=== PATIENT | male | born 1940 | race Caucasian/White ===

== ENCOUNTER 2023-06-26 15:57 | Emergency (ER) | payer OTHER, SELFPAY ==
[2023-06-26 16:00] VITALS: BP 142/110
[2023-06-26 16:12] LABS: Glucose - Point of Care 145 mg/dl (70-99)
[2023-06-26 16:27] LABS: % Basophils 0.8 % (0-2); % Lymphocytes 25.1 % (20.5-51.1); % Neutrophils 61.1 % (42.2-75.2); Absolute Basophils 0.1 10^3/uL (0-0.2); Absolute Eosinophils 0.2 10^3/uL (0-0.7); Absolute Immature Granulocytes 0.1 10^3/uL (0-0.05); Absolute Lymphocytes 1.5 10^3/uL (1.2-3.4); Absolute Monocytes 0.5 10^3/uL (0.1-0.6); Absolute Neutrophils 3.7 10^3/uL (1.4-6.5); Hematocrit 41.6 % (39.0-52.0); Hemoglobin 14.6 g/dL (13.0-18.0); Mean Corp Hgb Conc. 35.1 g/dL (33.0-37.0); Mean Corpuscular Hgb 30.9 pg (27.0-31.0); Mean Corpuscular Volume 88.1 fL (80.0-94.0); Mean Platelet Volume 9.5 fL (7.4-10.4); Nucleated Red Blood Cells % 0 % (-); Platelet Count 181 10^3/uL (130-400); Red Blood Cell Count 4.72 10^6/uL (4.70-6.10); Red Cell Dist. Width 13.4 % (11.5-14.5)
[2023-06-26 16:44] LABS: ALT (SGPT) 40 U/L (0-50); AST (SGOT) 41 U/L (17-59); Albumin 4.1 g/dl (3.5-5.0); Alkaline Phosphatase 70 U/L (38-126); Blood Urea Nitrogen 25 mg/dl (9-20); Calcium 9.9 mg/dl (8.4-10.2); Carbon Dioxide 26 mmol/L (22-30); Chloride 105 mmol/L (98-107); Glucose 149 mg/dl (70-99); Potassium 4.5 mmol/L (3.5-5.1); Sodium 138 mmol/L (135-145); Total Bilirubin 0.7 mg/dl (0.2-1.3); Total Protein 7.2 g/dl (6.3-8.2); eGFR > 60.00
[2023-06-26 16:53] LABS: Troponin I < 0.012 ng/ml
--- NOTE | 2023-06-26 18:07 | ED.GENMED ---
History of Present Illness
General
Chief Complaint: Dizziness
Source: patient and spouse
Exam Limitations: none
Time Seen by Provider: 06/26/23 17:44
Nursing documentation reviewed up to this point in time: agreed with
Travel History
Have you had any contact with someone who has COVID-19?: No
Do you have any symptoms of coronavirus? Fever > 100 degrees, chills, cough, shortness of breath, sore throat, loss of taste or smell, muscle aches, or headache?: No
History of Present Illness
History of Present Illness:
83-year-old male presents emergency room complaining of a fall. He grabbed for his chair to sit down and got dizzy/lightheaded and fell to the ground. He scraped his right arm. He denies hitting his head. He denies any pain.
Past History
Past History
ED Past Medical History: Arrthythmia (bifascicular bundle branch block), CAD, GERD, HTN, Hypercholesterolemia, NIDDM, [place], Other (low back pain with right-sided sciatica, gout, presbycusis, nonalcoholic fatty liver disease), Other (ischemic
cardiomyopathy, vitamin B12 deficiency, abdominal aortic aneurysm without rupture, obesity, colonic polyposis, diverticulosis) and Other (rosacea, ANGELINE on CPAP)
ED Past Surgical History: Cardiac (stent placement) and Orthopedic (Right shoulder surgery, low back surgery)
Patient has exhibited threatening behavior?: No
PSI?: No
Social History
Tobacco: Former smoker
Alcohol: Occasional
Drug: None
Personal:
Living: with family
Employment: Retired
Family History
Family History: Other (reviewed and Noncontributory)
Review of Systems
Review of Systems
Allergies reviewed?: Yes
All Other Systems: Not applicable
Constitutional: Reports no symptoms
EENT: Reports no symptoms
Respiratory: Reports no symptoms
Cardiac: Reports no symptoms
ABD/GI: Reports no symptoms
: Reports no symptoms
Musculoskeletal: Reports no symptoms
Skin: Reports no symptoms
Neurological: Reports other (Lightheaded)
Endocrine: Reports no symptoms
Hematologic/Lymphatic: Reports no symptoms
Psychiatric: Reports no symptoms
Phy Exam
Physical Exam
Physical Exam:
Physical Exam
General: no apparent distress, not acutely ill
Neck: supple. no meningeal signs. normal posterior pharynx
Heart: s1/s2 regular rate and rhythm, no murmur. equal radial
pulses.
HEENT: Pupils equal round reactive to light, EOMI
Lungs: no acute respiratory distress. clear bilaterally
Abdomen: normal bowel sounds. not tender. no CVAT
Neuro: alert and oriented. no focal neurological deficits cranial nerves II through XII intact
Skin: no rash, skin tears right forearm
Psychiatric: well kept. interactive and cooperative
Extremities: no edema. no calf tenderness. negative homans. good distal pulses
Course
Orders/Labs/Results
Orders:
Orders
06/26/23 16:06
EKG [Electrocardiogram (*1)] Urgent
Reason for Study: Vertigo / Dizzy
EKG- Treatment ONCE
06/26/23 16:11
CBC/With Diff [Complete Blood Count/With Diff] Urgent
CMP [Comprehensive Metabolic Panel] Urgent
Troponin I Urgent
Abnormal Lab Results
06/26/23
16:11
Abs Immat Gran (auto) 0.1 H 10^3/uL
(0-0.05)
Immature Gran % 1.0 H %
(0-0.5)
BUN 25 H mg/dl
(9-20)
Glucose 149 H mg/dl
(70-99)
POC Glucose 145 H mg/dl
(70-99)
06/26/23 16:11
06/26/23 16:11
Vital Signs
Initial and Last Documented VS:
Initial Vital Signs
Temp Pulse Resp BP Pulse Ox
98.5 F 76 18 142/110 98
06/26/23 16:00 06/26/23 16:00 06/26/23 16:00 06/26/23 16:00 06/26/23 16:00
Last Documented Vital Signs
Temp Pulse Resp BP Pulse Ox
98.5 F 76 18 142/110 98
06/26/23 16:00 06/26/23 16:00 06/26/23 16:00 06/26/23 16:00 06/26/23 16:00
MDM/Problems Addressed
Differential Diagnosis Includes:
Dysrhythmia, skin tear
MDM/Problems Addressed:
83-year-old male with fall, no head strike, right skin tear. No signs of dysrhythmia. Vital signs stable. Patient be discharged to follow-up with primary care.
Chronic conditions affecting care: HTN and CAD
Acute Exacerbation and/or Progression of Chronic Illness: HTN and CAD
*Pulse Oximetry
Patient hypoxic: no
*EKG
Interpreted by ED Provider?: Yes
EKG Intrepretation Date: 06/26/23
EKG Intrepretation Time: 16:18
Interpretation: abnormal
Comparison EKG: no changes
Heart Rate: 74
Rate: normal
Rhythm: sinus
[place]: normal axis
Interval: normal interval and first degree heart block
QRS Pattern: normal QRS
*Plant Control Operator Interpretation
Rate: normal
Interpretation: normal
Heart Rate: 75
Rhythm: sinus
*Critical Care Note
Total Time (30-74mins, 75-104mins- exclusive of procedures): Not Applicable
Data Reviewed
Review of Other/Old Records Reveals: Records
Source: patient and family
Patient Management
Social determinants of health affecting care: Living situation and Strong social support
Escalation/DeEscalation of care consider admission/obs:
admit not indicated
ED Attending Note
-
Portions of this chart may have been created with voice recognition software.� Occasional wrong word or��sound alike� substitutions may have occurred due to the inherent limitations of voice recognition software.
Discharge Plan
Departure
Patient Disposition: Home (Routine Discharge)
Date of Disposition: 06/26/23
Time of Disposition: 18:14
Patient with high blood pressure during this ER visit?: Yes
Condition: Good
Discharge Problem:
Fall, Skin tear
Instructions: Preventing falls in adults, Wound Care ED
Prescriptions:
No Action
carvedilol 12.5 MG tablet
12.5 mg PO BID
nitroglycerin 0.4 MG tablet, sublingual
0.4 mg sublingual [id number] PRN (Reason: chest pain) Qty: 25 2RF
allopurinol 300 MG tablet
300 mg PO DAILY
cyanocobalamin (vitamin B-12) 1,000 MCG tablet
1,000 mcg PO DAILY
hydrochlorothiazide 25 MG tablet
25 mg PO DAILY
aspirin 81 MG tablet,chewable
81 mg PO QPM
metformin 500 MG tablet extended release 24 hr
1,000 mg PO QPM
fexofenadine 180 mg Tablet
180 mg PO DAILY
pravastatin 80 mg tablet
80 mg PO MOWEFR@2200
lisinopril 40 mg tablet
40 mg PO DAILY
clopidogrel 75 mg Tablet
75 mg PO DAILY Qty: 90 5RF
Activity Restrictions/Additional Instructions:
Follow up with primary care in 3-5 days.
Interventions
Interventions:
*Risk Screen - Suicide Last Done: 06/26/23 16:00
*General Assessment Last Done: 06/26/23 16:00
*ED COVID-19 Vaccine History Last Done: 06/26/23 16:00
== END 2023-06-26 18:38 | disposition home or self-care (01) ==
LOC: EMR 15:57
PROVIDERS: EMERGENCY PHYSICIAN Emergency Medicine; FAMILY PHYSICIAN Family Medicine
DX: S41.111A Laceration without foreign body of right upper arm, initial encounter (principal); W19.XXXA Unspecified fall, initial encounter; I10 Essential (primary) hypertension; I25.10 Atherosclerotic heart disease of native coronary artery without angina pectoris; Z87.891 Personal history of nicotine dependence
CPT/HCPCS: 99284; 80053; 82962; 84484; 85025; 93005

== ENCOUNTER 2023-12-06 08:37 | Emergency (ER) | payer OTHER, SELFPAY ==
[2023-12-06 08:53] VITALS: BP 152/74
[2023-12-06 09:26] VITALS: BMI 33.6
--- NOTE | 2023-12-06 09:38 | ED.GENMED ---
History of Present Illness
General
Chief Complaint: Musculo-Skeletal Complaint
Source: patient
Exam Limitations: none
Time Seen by Provider: 12/06/23 09:20
Nursing documentation reviewed up to this point in time: agreed with
History of Present Illness
History of Present Illness:
83-year-old male past medical history of CAD status post stent hypertension hyperlipidemia, diabetes presenting to the emergency department today with concerns of left-sided head discomfort. Initially had a fall hit his left hip had a contusion
[facility] He has had ongoing discomfort since some increased achiness today trouble ambulating today as well.
Past History
Past History
ED Past Medical History: Arrthythmia (bifascicular bundle branch block), CAD, GERD, HTN, Hypercholesterolemia, NIDDM, [place], Other (low back pain with right-sided sciatica, gout, presbycusis, nonalcoholic fatty liver disease), Other (ischemic
cardiomyopathy, vitamin B12 deficiency, abdominal aortic aneurysm without rupture, obesity, colonic polyposis, diverticulosis) and Other (rosacea, ANGELINE on CPAP)
ED Past Surgical History: Cardiac (stent placement) and Orthopedic (Right shoulder surgery, low back surgery)
Patient has exhibited threatening behavior?: No
PSI?: No
Social History
Tobacco: Former smoker
Alcohol: Occasional
Drug: None
Personal:
Living: with family
Employment: Retired
Family History
Family History: Other (reviewed and Noncontributory)
Review of Systems
Review of Systems
Allergies reviewed?: Yes
All Other Systems: ROS reviewed and negative except as documented in HPI and ROS
Phy Exam
Physical Exam
Physical Exam:
GENERAL: Alert , in no apparent distress
EYE: pupils equal and reactive
NECK: Supple, no significant adenopathy.
ENT: o/p clr, mmm.
CARDIAC: Regular rate and rhythm .
LUNGS: Clear breath sounds bilaterally, no acute respiratory distress, no wheezes/rales/rhonchi
ABDOMEN: Soft, without focal tenderness, no r/g, no cvat
NEUROLOGICAL: Alert and oriented, no focal neuro deficits
SKIN: Warm and dry, skin intact.
MUSCULOSKELETAL: Mildly reproducible discomfort to the left lateral hip. No redness or warmth good range of motion but increased discomfort with straight leg raise after 45 degrees. No abnormalities to the low back no edema, well perfused.
PSYCH: Normal and appropriate interaction.
Course
Orders/Labs/Results
Orders:
Orders
12/06/23 09:22
Hip, Left 2-3 Views [CR Hip - LT w/wo Pel 2-3 Vw*] Urgent
Comment:
Reason For Exam: left hip pain
Include a pelvis x-ray?: Yes
12/06/23 09:34
Lumbar Spine, 2 or 3 View [CR Lumbar Spine 2 Or 3 Views] Urgent
Comment:
Reason For Exam: low back pain
12/06/23 09:35
Dexamethasone [Decadron] 10 mg PO NOW STA
Ketorolac [Toradol] 15 mg IM NOW STA
12/06/23 09:42
Pt Eval And Treat Urgent
Activity Level: Ambulate
Vital Signs
Initial and Last Documented VS:
Initial Vital Signs
Temp Pulse Resp BP Pulse Ox
98.7 F 57 18 152/74 98
12/06/23 08:53 12/06/23 08:53 12/06/23 08:53 12/06/23 08:53 12/06/23 08:53
Last Documented Vital Signs
Temp Pulse Resp BP Pulse Ox
98.7 F 56 18 129/70 99
12/06/23 08:53 12/06/23 10:08 12/06/23 10:08 12/06/23 10:08 12/06/23 10:08
MDM/Problems Addressed
MDM/Problems Addressed:
83-year-old male presenting to the emergency department today with concerns of left-sided hip discomfort persisting over the past 9 days after a fall. He had x-rays at an urgent care 9 days ago that were normal. He was diagnosed with a contusion.
He has been taking Motrin and Tylenol at home without relief. Denies any fevers redness or warmth denies nausea vomiting change in bowel movements or urination. Here pain is mildly reproducible with some movements and vaguely reproducible with
palpation of the left lateral hip. No redness or warmth or any signs or symptoms consistent with infection. Patient was given Toradol with significant improvement of symptoms. Otherwise x-rays without emergent findings patient advised for close
outpatient follow-up with pain management return precautions given.
*Critical Care Note
Total Time (30-74mins, 75-104mins- exclusive of procedures): Not Applicable
ED Attending Note
-
Portions of this chart may have been created with voice recognition software.� Occasional wrong word or��sound alike� substitutions may have occurred due to the inherent limitations of voice recognition software.
Discharge Plan
Departure
Patient Disposition: Home (Routine Discharge)
Date of Disposition: 12/06/23
Time of Disposition: 11:33
Patient with high blood pressure during this ER visit?: No
Condition: Good
Covid-19: Not Applicable
Discharge Problem:
Acute hip pain
Instructions: Hip Pain ED
Prescriptions:
New
meloxicam 15 mg tablet
15 mg PO DAILY 5 Days Qty: 5 0RF
No Action
carvedilol 12.5 MG tablet
12.5 mg PO BID
nitroglycerin 0.4 MG tablet, sublingual
0.4 mg sublingual [id number] PRN (Reason: chest pain) Qty: 25 2RF
allopurinol 300 MG tablet
300 mg PO DAILY
cyanocobalamin (vitamin B-12) 1,000 MCG tablet
1,000 mcg PO DAILY
hydrochlorothiazide 25 MG tablet
25 mg PO DAILY
aspirin 81 MG tablet,chewable
81 mg PO QPM
metformin 500 MG tablet extended release 24 hr
1,000 mg PO QPM
fexofenadine 180 mg Tablet
180 mg PO DAILY
pravastatin 80 mg tablet
80 mg PO MOWEFR@2200
lisinopril 40 mg tablet
40 mg PO DAILY
clopidogrel 75 mg Tablet
75 mg PO DAILY Qty: 90 5RF
Referrals:
Victorino Whyte MD [Active] - Follow up in 5-7 days
Les Da Silva MD [Family Provider] -
Activity Restrictions/Additional Instructions:
You came to the emergency department today with concerns of left hip pain. You had x-rays without signs of emergent process. Please follow closely with the pain management doctor. You can take the prescribed medication help with symptoms. Return
to the emergency department for any worsening, new or concerning symptoms.
Interventions
Interventions:
*Risk Screen - Suicide Last Done: 12/06/23 08:53
*General Assessment Last Done: 12/06/23 08:53
*Neglect/Abuse Screening Last Done: 12/06/23 08:53
ED- Fall Risk Assessment Last Done: 12/06/23 09:30
*ED COVID-19 Vaccine History Last Done: 12/06/23 09:26
ED-Musculoskeletal Assessment Last Done: 12/06/23 09:26
Discharge Date and Time
Print Language: SYRIAC
[2023-12-06] MEDS: DECADRON 10 MG PO (09:55)
[2023-12-06] MEDS: TORADOL 15 MG IM (09:56)
[2023-12-06 10:08] VITALS: BP 129/70
[2023-12-06 10:56] VITALS: BP 141/69; PULSE 62; O2SAT 99
[2023-12-06 11:45] VITALS: BP 127/72
--- NOTE | 2023-12-06 11:54 | EDRN ---
Reviewed discharge instructions. Verbalized understanding. Taken to lobby in wheelchair.
== END 2023-12-06 11:45 | disposition home or self-care (01) ==
LOC: EMR 08:37
PROVIDERS: EMERGENCY PHYSICIAN Emergency Medicine; FAMILY PHYSICIAN Family Medicine
DX: M25.552 Pain in left hip (principal); I25.10 Atherosclerotic heart disease of native coronary artery without angina pectoris; I10 Essential (primary) hypertension; E78.00 Pure hypercholesterolemia, unspecified; E11.9 Type 2 diabetes mellitus without complications; Z87.891 Personal history of nicotine dependence
CPT/HCPCS: 99284; 96372; 72100; 73502

== ENCOUNTER → 2024-02-05 08:50 | Outpatient (REF) | payer OTHER, SELFPAY | LOC: HWRCS 08:50 | PROVIDERS: ATTENDING PHYSICIAN Internal Medicine Cardiovascular Disease; FAMILY PHYSICIAN Family Medicine | DX: Z95.5 Presence of coronary angioplasty implant and graft (principal); R53.83 Other fatigue | CPT/HCPCS: 93306 ==

== ENCOUNTER 2024-06-17 19:42 | Inpatient (IN) | payer OTHER, SELFPAY ==
[2024-06-17] VITALS (12 sets, daily range): BP systolic 97–150; BP diastolic 45–78; PULSE 29–133; BMI 35.9
--- NOTE | 2024-06-17 18:50 | HPS.HSE ---
Family Physician
-
Family Physician: Les Da Silva
Chief Complaint
-
lightheadedness
History of Present Illness
83-year-old with past medical history for AAA, GERD, cardiomyopathy, hypertension, obstructive sleep apnea, type 2 diabetes, MA, hyperlipidemia presented to us with lightheadedness. Patient slid off the chair as he felt the lightheadedness. Denied
headache or dizziness. Patient denied fever, chills, congestion, cough. Patient denied chest pain or short of breath. Patient denied abdominal pain, nausea, vomiting or diarrhea. Patient denied dysuria hematuria .
Patient was noted in third-degree heart block with heart rate ranging from 28 to 30s. Admitting for further management
Medical History
Past Medical History
Past Medical History: Reports Other
Additional Past Medical History:
GERD
AAA
Ischemic cardiomyopathy
Hypertension
Coronary artery disease
Obstructive sleep apnea
Type 2 diabetes
Poor spinal fusion
Bifascicular bundle branch block
hyperlipidemia
Myocardial infarction
Sciatica
Gout
Hypertension
Nonalcoholic fatty liver disease
Colon polyps
Diverticulosis
Past Surgical History: Reports Other
Additional Past Surgical History:
Cardiac stent
Social History
Tobacco: Former Smoker
Alcohol: None
Drug: None
Personal:
Living: With Family
Family History
Family History: Not pertinent
Allergies / Home Medications
Allergies reflects when Allergies were last updated in [employer].
Home Medications with original date entered in [employer]
Allergy/Medication List:
Allergies
Allergy/AdvReac Type Severity Reaction Status Date / Time
codeine [Codeine] Allergy hyper Verified 06/17/24 18:45
meloxicam [From Mobic] Allergy Shortness Verified 06/17/24 18:45
of
Breath/+wheezing
Sulfa (Sulfonamide Allergy severe pain Verified 06/17/24 18:45
Antibiotics)
sulfamethoxazole Allergy Unknown Verified 06/17/24 18:45
[From Bactrim]
trimethoprim [From Bactrim] Allergy Unknown Verified 06/17/24 18:45
Home Medications
carvedilol 12.5 mg tablet 12.5 mg PO BID Heart Failure 08/02/11
nitroglycerin 0.4 mg sublingual tablet 0.4 mg sublingual [id number] PRN chest pain #25 tabs 10/29/18
allopurinol 300 mg tablet 300 mg PO DAILY Gout 08/17/20
cyanocobalamin (vitamin B-12) 1,000 mcg tablet 1,000 mcg PO DAILY Supplement 08/17/20
hydrochlorothiazide 25 mg tablet 25 mg PO DAILY Blood pressure 04/12/21
aspirin 81 mg chewable tablet 81 mg PO QPM Blood clot prevention/tx 09/20/21
metformin 500 mg tablet,extended release 24 hr 1,000 mg PO QPM Diabetes 09/20/21
lisinopril 40 mg tablet 20 mg PO DAILY Blood pressure 08/16/22
Review of Systems
-
Constitutional: Reports No Symptoms
EENT: Reports No Symptoms
Respiratory: Reports No Symptoms
Cardiac: Reports No Symptoms
Abdomen/GI: Reports No Symptoms
: Reports No Symptoms
Musculoskeletal: Reports No Symptoms
Skin: Reports No Symptoms
Neurological: Reports No Symptoms
Endocrine: Reports No Symptoms
Hematologic/Lymphatic: Reports No Symptoms
Psych: Reports No Symptoms
Physical Exam
Vital Signs
Vital Signs
Temp Pulse Resp BP Pulse Ox
98.3 F 30 19 150/57 98
06/17/24 18:30 06/17/24 18:30 06/17/24 18:30 06/17/24 18:30 06/17/24 18:30
Physical Exam
General: Well Developed, Well Nourished and No Apparent Distress
HEENT: NormoCephalic, Moist mucous membranes and Atraumatic
Respiratory: Clear
Cardiac: Irregular Rhythm and Bradycardia; No Murmur or Rub
GI: Soft, Non Tender, Non Distended and Normal Bowel Sounds; No Organomegaly
Rectal: Deferred by Provider
Musculoskeletal: No Clubbing, No Cyanosis and No Edema
Skin: No Rash
Neuro: AO x 3 and Nonfocal/grossly intact
Psych: Calm
Data Reviewed
-
Lab Data: Labs Reviewed by me
Impression/Plan
-
# Near syncope secondary to third-degree heart block/Willy
-HR in 28-32
-Hold Coreg
-Cardiology consulted
-Keep patient n.p.o. for pacemaker tomorrow
-getting temporary pacer tonight
-dopamine continued
-as per cards, placed successful temp transvenous pacer, at present HR in 80s
# Coronary artery disease
-Cardiac stent
-Aspirin continued
# Type 2 diabetes
-Hold metformin
- sliding scale
# Essential hypertension
-Blood pressure stable
-HCTZ and lisinopril continue with hold parameters
# Gout
allopurinol continued
# Hyperlipidemia
-on Repatha as outpatient
# DVT prophylaxis
-SCDs
# CODE STATUS
- full code
-
-
[2024-06-17 19:04] LABS: Hematocrit 38.7 % (39.0-52.0); Hemoglobin 13.4 g/dL (13.0-18.0); Mean Corp Hgb Conc. 34.6 g/dL (33.0-37.0); Mean Corpuscular Hgb 30.3 pg (27.0-31.0); Mean Corpuscular Volume 87.6 fL (80.0-94.0); Mean Platelet Volume 9.3 fL (7.4-10.4); Platelet Count 175 10^3/uL (130-400); Red Blood Cell Count 4.42 10^6/uL (4.70-6.10); Red Cell Dist. Width 13.2 % (11.5-14.5)
[2024-06-17] MEDS: DOPamine 400 MG 250 IV (19:14)
[2024-06-17 19:20] LABS: ALT (SGPT) 32 U/L (0-50); AST (SGOT) 27 U/L (17-59); Albumin 4.3 g/dl (3.5-5.0); Alkaline Phosphatase 73 U/L (38-126); Blood Urea Nitrogen 33 mg/dl (9-20); Calcium 9.7 mg/dl (8.4-10.2); Carbon Dioxide 27 mmol/L (22-30); Chloride 101 mmol/L (98-107); Estimated Creatinine Clearance 73 ml/min; Glucose 158 mg/dl (70-99); Magnesium 2.1 mg/dl (1.6-2.3); Potassium 4.3 mmol/L (3.5-5.1); Sodium 137 mmol/L (135-145); Total Bilirubin 0.6 mg/dl (0.2-1.3); Total Protein 6.4 g/dl (6.3-8.2); eGFR > 60.00
--- NOTE | 2024-06-17 19:27 | W.PN.UPDATE ---
Update Note
Progress Note Update
This note serves as an addendum to the H&P by dolphin trainer BOBBY Iram MCCLURE
HPI
83M [facility] former smoker HX 6 cardiac stented CAD S/P ROEL (2019), bifascicular block, HTN, AAA (distal infrarenal 2.4cm), NIDDM, GERD, ANGELINE (on CPAP) seen at ER:
- [facility]
- reports he slide out of chiar due to dizziness after taking PM Meds Carvedilol and allopurinol
- Found to bradycardic @ 30s 1 mg IV atropine was given at 1820H then HR returns to 30s
- BG 205
PHX; as above
Reviewed VS: HR 30
PE
Gen:
HEENT:
Neck:
Lungs:
Cor:
Abdomen:
ANALYTICS SPECIALIST:
MS:
Psych:
Data
nl CBC
Pending CMP
EKG
MARKED SINUS BRADYCARDIA WITH A-V DISSOCIATION AND IDIOVENTRICULAR RHYTHM
LEFT AXIS DEVIATION
NON-SPECIFIC INTRA-VENTRICULAR CONDUCTION BLOCK
MINIMAL VOLTAGE CRITERIA FOR LVH, MAY BE NORMAL VARIANT ( Prieto product )
INFERIOR INFARCT , AGE UNDETERMINED
CANNOT RULE OUT ANTERIOR INFARCT , AGE UNDETERMINED
T WAVE ABNORMALITY, CONSIDER LATERAL ISCHEMIA
ABNORMAL ECG
WHEN COMPARED WITH ECG OF 26-JUN-2023 16:18,
IDIOVENTRICULAR RHYTHM HAS REPLACED SINUS RHYTHM
VENT. RATE HAS DECREASED BY 43 BPM
ECHO 02/05/24
Technically limited study. Recommend contrast for future studies.
Normal biventricular size and systolic function without regional wall motion abnormality.
Estimated LVEF 50-55%.
Aortic sclerosis without stenosis.
Dilated aortic root. Sinuses of Valsalva 4.2cm, ST junction is 3.6cm, Ascending Ao is 4.0cm.
10/28/18 Cardiac Catheterization:
EF 59%. Left main: Normal. LAD: 50-60% mid LAD stenosis similar in appearance to prior study (07/24/2016). Circumflex: 90% mid circumflex stenosis spanning the take off of the small OM2. This was stented with a ROEL.
ASSESSMENT & PLAN
Symptomatic severe bradycardia - AV dissociation
Lightheadedness episode almost near syncope
Normotensive
No CP
- ER attd d/w EP Automobile Glass Technician
- check TSH
- Hold Carvedilol
- on Dopamine gtt initiated at ER but HR is in 30s
- For temporary pace wire tonight
- NPO for PPM in AM
- CBC card consult
CAD S/P ROEL 2019 HX
- As above: New LCX lesion underwent PCI Tue but with slow flow after procedure, treated w IV adenosine
- c/w ASA and BB
Benign HTN - stable
ANGELINE - on CPAP
- CPAP use
NIDDM - Hyperglycemia
- add ISS low
- hold Metformin outpatient, hold for 48 hours with cardiac catheterization
DVT Px: SCD
Full code
IVU
[2024-06-17 19:45] LABS: Troponin I < 0.012 ng/ml
--- NOTE | 2024-06-17 19:54 | ITS.CL.PN ---
Farm Crew Member - Procedure Note
Procedure
Procedure Note:
TRANSVENOUS PACEMAKER REPORT
�
Date of Procedure: June 17, 2024
�
Referring: [place] emergency department
�
PROCEDURES:
1. Ultrasound-guided access.
2. Temporary transvenous pacemaker via right internal jugular venous access.
�
INDICATION: High-grade AV block
�
ACCESS: Right IJ vein
�
PROCEDURE DETAIL: Ultrasound guidance was utilized to obtain right internal jugular venous access with 8 Vietnamese sheath inserted and secured in place. Through this sheath a balloon tipped temporary transvenous pacemaker was successfully advanced
under fluoroscopy guidance into the right ventricle and thresholds were checked which was less than 1mA. Temporary transvenous pacemaker was set at a backup heart rate of 60 bpm, 20 mA
�
FLUORO: 1.2��min / RADIATION: 41.52
mGy
�
CONCLUSIONS
1. Successful placement of a temporary transvenous pacemaker via right internal jugular venous access with sheath sutured and secured in place along with a temporary venous pacemaker.
�
RECOMMENDATIONS
1. Bedrest overnight. Chest x-ray to rule out pneumothorax.
2. N.p.o. after midnight for likely permanent pacemaker tomorrow morning.
�
Porsha Fernández MD, [facility], [facility]
Copy to: René Capellan
�
�
�
�
�
�
--- NOTE | 2024-06-17 21:00 | PTCARENOTE ---
Received pt from shellfish processing laborer. pt is s/p temp pacemaker placement for 3rd degree heart block. pt is AAox4, VSS. VSS. pt is resting comfortably in bed. heart sounds audible, radial and DP pulses palpable, temp right IJ cordis, pacer set to VVI 60/20/.8.
lungs clear, cpap at night. +BS x 4 quadrants, abdomen soft non tender. pt voiding clear yellow urine. admission questions completed.
[2024-06-17 21:34] LABS: Glucose - Point of Care 186 mg/dl (70-99)
--- NOTE | 2024-06-17 23:48 | PTCARENOTE ---
Pt assessment unchanged. pt resting comfortably. RT place CPAP on pt. will continue to monitor.
[2024-06-18] VITALS (39 sets, daily range): BP systolic 87–136; BP diastolic 34–101; BMI 34.3
--- NOTE | 2024-06-18 02:35 | DOWNTIME ---
There was a Invisible Client Weigher And Grader Downtime on 06/18/2024 from 0100 to 06/18/2023 at 0235 . Downtime documentation of patient's care, including medication administrations, has been reconciled in the electronic record per guidelines. Refer to the
patient's paper chart under the miscellaneous tab to see printed paper medication records and downtime forms.
--- NOTE | 2024-06-18 04:00 | PTCARENOTE ---
pt assessment unchanged. labs drawn and sent. pt waiting for PPM today. call howard within reach.
--- NOTE | 2024-06-18 07:20 | W.PN.HOSP.TC ---
Addendum entered and electronically signed by Abraham Brown MD 06/18/24 21:37:
Attending Addendum-
I saw and evaluated the patient. I reviewed the resident�s note and agree with findings and plan as documented in the resident�s note. Sub: Seen post PPM. Appears confused and out of it. grabbing nursing staff. No complaints. Full 12 point ROS
attempted but limited due to MS Exam: Vitals reviewed in chart GEN-NAD, Chest- Lt upper chest bandaged, LUE in sling heart RRR lungs clear abd soft LE no edema LUE in sling pulses intact Neuro AAO x1
Plan:
#Third-degree heart block
-temporary pacer placed overnight
-06/18-Uncomplicated Medtronic pacemaker implant. The pacing system is MRI conditional. post op ancef
-wean dopamine to off then pull cordis
-PPM activity precautions with wound care
# CAD
-h/o Cardiac stent
-Aspirin continued
-reinitiate coreg in am
# Type 2 diabetes
- Hold metformin restart on DC
- sliding scale
# Essential hypertension
-Blood pressure stable
-HCTZ and lisinopril continue with hold parameters
# Gout
allopurinol continued
# Hyperlipidemia
-on Repatha as outpatient
# DVT prophylaxis
-SCDs
# CODE STATUS
- full code
Time spent coordinating care, review of plan of care with resident, personally reviewed records in EMR, med rec, consults, notes, labs, radiology, d/w nursing cards � 54 mins
Original Note:
Today's Communication/Plan
-
PPM today
N.p.o.
Monitor on telemetry
Assessment / Plan
Assessment / Plan
83-year-old male with PMH of AAA, GERD, CM, HTN, type II DM, CT, hyperlipidemia who presented to [facility] on 06/17/2024 with lightheadedness, slid off his chair denies head trauma. Denies headache/dizziness, denies fever, chills, chest
pain, SOB, N/V/D, abdominal pain or urinary symptoms.
Assessment/plan:
#Near syncope 2/2 third-degree heart AV block vs sick sinus syndrome
-Heart rate 28-32 on presentation.
-S/p catheterization 06/17.
-N.p.o.
-Maintained on temporary transvenous pacer overnight.
-Dual chamber permanent pacemaker placement today.
-Wean dopamine, keep MAP >65, SBP >90.
-Hold Coreg
-Cardiology following.
History of coronary artery disease
-S/p cardiac stents
-Continue aspirin.
#Type II DM
-Hold metformin.
-Low SSI, Accu-Cheks.
#Essential hypertension
-Stable.
-Hold lisinopril and HCTZ for procedures and restart afterwards.
#Chronic gout
-Continue allopurinol.
#Dyslipidemia.
-Continue outpatient Repatha.
#History of ANGELINE
DVT PPx: SCDs
CODE STATUS: Full code
Anticipated Discharge: 24 - 48 hours
Subjective/Interval History
-
Date of Service: June 18, 2024
I have seen and examined the patient. Reports no acute complaints today. Eager to get his permanent pacemaker. No acute events reported overnight. Hemodynamically stable.
Objective Data
-
Labs:
Laboratory Results
06/17/24
18:53
Sodium 137
Potassium 4.3
Chloride 101
Carbon Dioxide 27
BUN 33 H
Creatinine 1.0
Glucose 158 H
Calcium 9.7
Total Bilirubin 0.6
AST 27
ALT 32
Alkaline Phosphatase 73
Vital Signs:
Vital Signs
Temp Pulse Resp BP Pulse Ox
98.3 F 66 15 125/101 98
02/18/25 23:50 06/18/24 06:45 06/18/24 06:45 06/18/24 06:00 06/18/24 04:00
I&O
06/17/24 06/18/24 06/19/24
06:59 06:59 06:59
Output Total 300 / 300
Balance -300 / -300
Review of Systems
-
History Source: Patient
All other systems: Not reviewed unless documented
EENT: Reports No Symptoms Reported
Respiratory: Reports No Symptoms; Denies Cough or Trouble Breathing
Cardiac: Denies Chest Pain or Palpitations
Abdomen/GI: Reports No Symptoms; Denies Abdominal Pain, Nausea, Vomiting, Diarrhea or Bloody Stools
Skin: Reports No Symptoms
Neuro: Reports No Symptoms
Physical Exam
-
General: Well Developed, No Apparent Distress and Comfortable
HEENT: Normocephalic and Atraumatic
Respiratory: Clear to Auscultation
Cardiac: Regular Rhythm and S1/S2; Negative Murmur or Rub
GI: Soft, Nontender, Nondistended and Normal Bowel Sounds
Musculoskeletal: No Clubbing and No Edema
Skin: Warm and Dry; Negative Rash
Neuro: Awake and AO x 3
Psych: Calm
Data Reviewed
-
Diagnostic Radiology: Image personally visualized and interpreted, Report Reviewed by me and Discussed with Physician
Labs: Labs Reviewed by me and Discussed with Physician
Old Records: Reviewed
[2024-06-18] MEDS: ZYLOPRIM PO (08:00)
--- NOTE | 2024-06-18 08:30 | PTCARENOTE ---
pt received from previous RN, oriented, in bed. SR w/ 1st degree AVB/BBB on the monitor, HR 60-70s. Dopamine gtt running as ordered. SBP 100-120s. palpable pulses. pt on RA, 95-98% POX. lungs clear. pt abdomen round s/n, denies n/v. NPO. RIJ cordis
w/ TV pacer in place, VVI 60/20. PIV x2. bedrest. EKG performed. see worklist for VS, I&O, and assessment.
[2024-06-18] MEDS: ORETIC PO (08:49)
[2024-06-18] MEDS: ZESTRIL PO (08:50)
[2024-06-18 09:13] LABS: Glucose - Point of Care 144 mg/dl (70-99)
[2024-06-18] MEDS: NOVOLOG FLEXPEN-LOW RESISTANCE SC ×2 (09:14→14:45)
--- NOTE | 2024-06-18 09:20 | CM ---
Reviewed chart. Met with Mr. Jacobs to review discharge plans. He states prior to admission he resides with his spouse in a one story home with five steps to the porch and two steps to enter the home. He states prior to admission he was independent
with ambulation in the home but uses a quad cane in the community. He states he has a single point cane, quad cane and CPAP Machine at home. He states he has never needed VNA Services. He states he has a prescription plan and uses [facility]. Medical work-up in progress. The discharge plan is to return home with his spouse when medically stable.
[2024-06-18 09:45] LABS: Glycohemoglobin (HgbA1c) 7.2 % (4.0-5.6)
--- NOTE | 2024-06-18 10:07 | W.PN.CD ---
Today's Communication / Plan
-
-
EP Consult dictated
Plan:
- Dual chamber permanent pacemaker placement today
Impression / Plan
-
Syncope/near syncope from complete heart block
Paroxysmal complete heart block, likely infrahisian level of block
Pre-existing bifascicular heart block, RBBB/LAFB
CAD
Normal LVEF 50-55% in 01/2024
Mixed hyperlipidemia
HTN
ANGELINE
DM
GERD
BMI 34
Subjective: Feels ok now
Physical Exam
Vital Signs/Labs
Vital Signs
Temp Pulse Resp BP Pulse Ox
98.3 F 66 19 120/91 98
06/17/24 23:50 06/18/24 09:45 06/18/24 09:45 06/18/24 09:00 06/18/24 09:15
06/17/24 06/18/24 06/19/24
06:59 06:59 06:59
Actual Weight 108.5 kg
06/17/24 18:53
06/17/24 18:53
Magnesium 2.1 mg/dl (1.6-2.3) 06/17/24 18:53
LAB Results
06/17/24
19:17
Troponin I < 0.012
Data Reviewed
-
Date of Service: June 18, 2024
--- NOTE | 2024-06-18 10:23 | PTCARENOTE ---
pt cleaned w/ CHG wipes. report given to CCL RN, pt transported to CCL by CCL RN.
[2024-06-18 13:59] LABS: Glucose - Point of Care 141 mg/dl (70-99)
--- NOTE | 2024-06-18 14:15 | PTCARENOTE ---
pt report received from [facility], pt arrived to CVICU @~1330, pulling at clothes, disoriented to place and time. Dr. Brown aware of confusion. 100% Vpaced on the monitor, HR 60-80s. SBP 80-100s, Dopamine gtt running as ordered. pt on RA, sats in 80s,
placed on 3LNC w/ improvement. pt abdomen round, s/n, denies n/v. condom cath placed on patient, voiding. LCW aquacel in place, LUE sling in place. RIJ cordis maintained w/ KVO. EKG performed. at bedside. see worklist for VS, I&O, and
assessment.
--- NOTE | 2024-06-18 15:10 | PTCARENOTE ---
VSS. confusion clearing, oriented x3. follows commands. pt knows he had a PPM placed. CXR completed. lunch ordered.
--- NOTE | 2024-06-18 15:47 | ITS.CL.PACE ---
[employer] - Pacemaker Implant
Pacemaker Implant
Procedure Report:
Date of Procedure: June 18, 2024.
Procedure: Pacemaker Implantation. Left upper extremity venogram.
Indication: The pacemaker is for the treatment of nonreversible symptomatic bradycardia due to third degree atrioventricular block.
Performing physician: Adonis Collazo MD, [facility].
Implants:
Pulse Generator: Medtronic; Model# [id number]; Serial# [id number].
RA Lead: Medtronic; Model# 5076-52cm; Serial# [id number].
RV Lead: Medtronic; Model# 3830-69cm; Serial# [id number].
Technique: A time out was performed. A 10 mL upper extremity venogram demonstrated patent left axillary, cephalic, and subclavian veins. The procedure site was identified. The patient was anesthetized by the anesthesia service. Preoperative
cefazolin was administered. The patient was prepped and draped in the usual fashion. Local anesthetic was applied to the left prepectoral subcutaneous tissue. A 3 inch incision was made along the left deltopectoral groove. Dissection was carried to
the fascia. The left cephalic vein was easily isolated and proximal and distal control with 2-0 Vicryl suture. Using a micropuncture needle to access the cephalic vein under direct visualization a wire was advanced into the central circulation. A 7
Fr introducer was placed to allow two 0.35 J wires to be advanced. The leads were introduced with hemostatic peel away introducer sheaths. The RV lead was placed using utilizing the [employer] His delivery catheter ([id number]) that was advanced to the
left bundle area as confirmed by fluoroscopy in the HUNGARIAN and HEATH projections. The lead tip was advanced. PVC morphology was reviewed. When a satisfactory location was identified (W pattern observed) the lead was screwed into position with serial
turns. Septal engagement was confirmed with gentle torque applied to the guide sheath. After each series of turns (2-3) unipolar sensed morphology and impedance, and paced morphology of V1 was analyzed. The lead was further advanced until
satisfactory morphology and electrical characteristics were confirmed. There were 2 locations that had outstanding left bundle area pacing characteristics with a short left ventricular activation time and QR pattern in V1. However in both of those
locations the capture threshold bridger from 1 V 2-3 turns earlier to 2 V at the ideal location. I had to settle for nonselective left bundle pacing/deep intramyocardial septum to ensure a stable and acceptable capture threshold. The RV lead was
placed in the fifth location evaluated. The long guiding sheath was cut and removed from the RV without change in lead position, impedance, sensing, or capture. The ventricular lead was secured to the pectoralis muscle and fascia with two 0-silk
sutures. The atrial lead was placed in the right atrial appendage. 8 volt pacing from each lead did not capture the diaphragm. The atrial leads was secured to the pectoralis muscle and fascia. A subcutaneous pocket was created with Bovie cautery.
Hemostasis was excellent. The leads were appropriately attached to the device. The pocket was irrigated with antibiotic solution. The device and leads were placed in the pocket. The incision was closed in three layers with absorbable suture.
Steri-strips and a silver impregnated dressing were placed. Estimated blood loss was less than 10 ml. There were no complications. Fluoroscopy time 12.9 minutes and DAP 27.8 GyCM2. The device was then interrogated after skin closure.
Lead Analysis:
RA lead: P: 2.6 mV; Threshold: 1 V @ 0.4 ms; Impedance: 456 ohms.
RV lead (bipolar): R: 5.1 mV; Threshold: 0.5 V @ 0.4 ms; Impedance: 779 ohms.
RV lead (unipolar): R: 4.9 mV; Threshold: 0.5 V @ 0.4 ms; Impedance: 589 ohms.
Paced QRS characteristics: V1 has Qr morphology and measures 130 ms in duration, LVAT (stim to peak V5/V6) is 90 ms, and R peak V1 to R peak V5/6 is 44 ms.
Final Programming: DDDR 60-130 bpm.
Conclusion: Uncomplicated Medtronic pacemaker implant. The pacing system is MRI conditional.
Recommendation: Routine post pacemaker care.
cc: Steve Belcher MD and Les Da Silva MD.
[2024-06-18 16:46] LABS: Glucose - Point of Care 176 mg/dl (70-99)
[2024-06-18] MEDS: NOVOLOG FLEXPEN-LOW RESISTANCE 1 UNITS SC (17:10)
[2024-06-18] MEDS: ANCEF 5 IV (17:10)
[2024-06-18] MEDS: LOW STRENGTH ASPIRIN 81 MG PO (17:10)
--- NOTE | 2024-06-18 18:35 | PTCARENOTE ---
Dopamine gtt titrated off, RIJ cordis dc'd as ordered. attempted to get pt OOB to chair, unsteady on feet. pt placed back to bed. SBP 110s. linens and gown changed. pt incontinent x1, linens and gown changed again. condom cath in place.
--- NOTE | 2024-06-18 20:00 | PTCARENOTE ---
Assumed care of the patient at 1900. Patient in bed, AOx3 but confused, forgetful making inappropriate comments regarding where he would be sleeping, etc, reorientation provided. Ventricular paced on telemetry, pulses palpable, new permanent pacer
in place, no edema. Lungs clear on RA. Abdomen SNT, obese. Condom catheter in place, urine clear yellow, concentrated; patient incontinent. Skin intact, LCW Aquacel in place for pacer, L sling in place. See nursing worklist for interventions. Call
howard within reach, patient updated on POC, in agreement, assessment of needs ongoing.
[2024-06-18 22:15] LABS: Glucose - Point of Care 123 mg/dl (70-99)
[2024-06-19] VITALS (18 sets, daily range): BP systolic 105–151; BP diastolic 64–102; PULSE 84; O2SAT 98; BMI 34.3
--- NOTE | 2024-06-19 | PTCARENOTE ---
Patient removed condom cath, incontinent. Condom cath replaced, patient reoriented, VSS.
[2024-06-19] MEDS: BENADRYL 25 MG IV (02:41)
[2024-06-19] MEDS: ANCEF 5 IV (02:41)
[2024-06-19 03:39] LABS: Hematocrit 38.3 % (39.0-52.0); Hemoglobin 12.9 g/dL (13.0-18.0); Mean Corp Hgb Conc. 33.7 g/dL (33.0-37.0); Mean Corpuscular Hgb 30.1 pg (27.0-31.0); Mean Corpuscular Volume 89.3 fL (80.0-94.0); Mean Platelet Volume 9.6 fL (7.4-10.4); Platelet Count 150 10^3/uL (130-400); Red Blood Cell Count 4.29 10^6/uL (4.70-6.10); Red Cell Dist. Width 13.2 % (11.5-14.5); White Blood Cell Count 8.3 10^3/uL (4.8-10.8)
[2024-06-19 03:45] LABS: Blood Urea Nitrogen 27 mg/dl (9-20); Calcium 8.9 mg/dl (8.4-10.2); Carbon Dioxide 26 mmol/L (22-30); Chloride 103 mmol/L (98-107); Estimated Creatinine Clearance 78 ml/min; Glucose 126 mg/dl (70-99); Potassium 4.2 mmol/L (3.5-5.1); Sodium 137 mmol/L (135-145); eGFR > 60.00
--- NOTE | 2024-06-19 04:05 | PTCARENOTE ---
Patient increasingly agitated as the night progressed, CVPA aware, given IV Benadryl, labs drawn and sent, made comfortable in bed. Around 0350, patient insisted on getting OOB. Reorientation attempted by RNs; patient verbally abusive, attempting to
kick/hit, answering orientation questions correctly but stating 'you are in my house,' and requesting his . Bed alarm on, call howard within reach.
[2024-06-19 04:18] LABS: Glucose - Point of Care 129 mg/dl (70-99)
--- NOTE | 2024-06-19 07:06 | W.PN.HOSP.TC ---
Addendum entered and electronically signed by Abraham Brown MD 06/19/24 22:41:
Attending Addendum-
I saw and evaluated the patient. I reviewed the resident�s note and agree with findings and plan as documented in the resident�s note. Sub: called by PT re apparent visual filed cuts. Patient denies neuro sxs. Is embarrased of how he acted post PPM
placement. 'Im not like that' Seen with present. Feels weak. Denies vision changes Very pleasant Full 12 point ROS reviewed and negative except as documented Exam: Vitals reviewed in chart GEN-NAD, Left neck incision bandaged Chest- Lt upper
chest aquacell in place, LUE in sling heart RRR lungs clear abd soft LE no edema LUE in sling pulses intact Neuro AAO x3 MS 5/5 sensation intact CN 2 - 12 GI no visual field deficits
Plan:
#Third-degree heart block
-temporary TV pacer placed on admission- removed
-06/18-Uncomplicated Medtronic pacemaker implant. The pacing system is MRI conditional
-weaned dopamine to off cordis pulled
-PPM activity precautions with wound care
# CAD
-h/o Cardiac stent
-Aspirin continued
-reinitiate coreg
# Apparent Visual Filed Deficit
- appreciate neuro c/s
- head ct-Stable chronic findings. No acute intracranial abnormality noted. No acute intracranial hemorrhage
- check carotid U/S
- cont asa
- OP Ophtho eval and MRI 6-8 weeks
- PT OT
# Type 2 diabetes
- Hold metformin restart on DC
- sliding scale
- [id number]
# Essential hypertension
-Blood pressure stable
-HCTZ and lisinopril continue with hold parameters
-restart coreg
# Gout
allopurinol continued
# Hyperlipidemia
-on Repatha as outpatient
# CVA- seen on head ct
- chronic
- cont asa repatha
# DVT prophylaxis
-SCDs
# CODE STATUS
- full code-> DNR d/w
Dispo DC to SNF in am
ACP
Patient consented to discuss, was with /POA, time spent explanation of advance directives, changes in health status, patient�s health care wishes if the patient becomes unable to make health decisions, goals of care, code status, and prognosis
'he doesnt want that his advanced directive states otherwise'- 16 minutes
Time spent coordinating care, review of plan of care with resident, personally reviewed previous records in EMR, med rec, labs, radiology, d/w nursing, family total time documented is exclusive of any additional time listed that was spent in advance
care planning discussion -�56 minutes
Original Note:
Today's Communication/Plan
-
Monitor on telemetry
Wound care
Neuro consult.
Fall precautions.
Continue lisinopril and Coreg
Constant redirection, avoid antipsychotics
Discharge planning
Assessment / Plan
Assessment / Plan
83-year-old male with PMH of AAA, GERD, CM, HTN, type II DM, MA, hyperlipidemia who presented to [facility] on 06/17/2024 with lightheadedness, slid off his chair denies head trauma. Denies headache/dizziness, denies fever, chills, chest
pain, SOB, N/V/D, abdominal pain or urinary symptoms.
Assessment/plan:
#Near syncope 2/2 third-degree heart AV block
-S/p uncomplicated Medtronic MRI compatible dual chamber pacemaker implant 06/18.
-Postop Ancef given.
-Dopamine weaned off, Cordis pulled successfully.
-Wound care.
-Pacemaker restrictions.
-Discontinue Coreg.
-Outpatient follow-up with cardiology.
-Cardiology appreciated.
#Transient encephalopathy
-Most likely anesthesia induced vs sundowning.
-Constant reorientation.
-Benadryl as needed.
-Avoid antipsychotics.
-Strict glycemic control.
#Right field deficit.
#Ambulatory dysfunction
-Intermittent decreased right peripheral vision.
-Not sure if this is acute vs chronic.
-Non contrast CT head per neuro.
-Brain MRI in 6 weeks.
-Neuro input appreciated.
-Fall precautions.
-Outpt ophthalmology eval.
-No driving.
-PT recs SNF, Pt not agreeable.
History of coronary artery disease
-S/p 6 cardiac stents
-Continue aspirin.
#Type II DM
-Continue metformin.
-Low SSI, Accu-Cheks.
#Essential hypertension
-Stable.
-Continue lisinopril and HCTZ for procedures and restart afterwards.
#Chronic gout
-Continue allopurinol.
#Mixed Dyslipidemia.
-Continue outpatient Repatha.
#History of ANGELINE
DVT PPx: SCDs
CODE STATUS: Full code
Dispo- PT recs SNF for ambulatory disfunction if pt and agrees.
Anticipated Discharge: Today
Subjective/Interval History
-
Date of Service: June 19, 2024
Overnight patient was increasingly agitated, Benadryl administered. This morning, patient looks better. Communicating appropriately, intermittently confused. Stated that today [birth year] his birthday and he would like to go home today. Denies chest
pain, shortness of breath, abdominal pain, fever or chills. Denies palpitations.
Objective Data
-
Labs:
Laboratory Results
06/19/24
02:57
WBC 8.3
Hgb 12.9 L
Hct 38.3 L
Plt Count 150
Sodium 137
Potassium 4.2
Chloride 103
Carbon Dioxide 26
BUN 27 H
Creatinine 0.9
Glucose 126 H
Calcium 8.9
Vital Signs:
Vital Signs
Temp Pulse Resp BP Pulse Ox
98.4 F 73 17 127/69 94
06/19/24 04:00 06/19/24 02:15 06/19/24 02:15 06/19/24 02:06 06/19/24 02:15
I&O
06/18/24 06/19/24 06/20/24
06:59 06:59 06:59
Intake Total 711.8 / 711.8
Output Total 300 / 300 1450 / 1450
Balance -300 / -300 -738.2 / -738.2
Review of Systems
-
History Source: Patient
All other systems: Not reviewed unless documented
EENT: Reports No Symptoms Reported
Respiratory: Reports No Symptoms; Denies Cough or Trouble Breathing
Cardiac: Denies Chest Pain or Palpitations
Abdomen/GI: Reports No Symptoms; Denies Abdominal Pain, Nausea, Vomiting, Diarrhea or Bloody Stools
Musculoskeletal: Reports No Symptoms
Skin: Reports No Symptoms
Neuro: Reports No Symptoms
Endocrine: Reports No Symptoms
Physical Exam
-
General: Well Developed, No Apparent Distress and Comfortable
HEENT: Normocephalic and Atraumatic
Respiratory: Clear to Auscultation
Cardiac: Regular Rhythm and S1/S2; Negative Murmur or Rub
GI: Soft, Nontender, Nondistended and Normal Bowel Sounds
Musculoskeletal: No Clubbing and No Edema
Skin: Warm and Dry; Negative Rash
Neuro: Awake and AO x 3
Psych: Calm
Data Reviewed
-
Diagnostic Radiology: Image personally visualized and interpreted, Report Reviewed by me and Discussed with Physician
Labs: Labs Reviewed by me and Discussed with Physician
Old Records: Reviewed
--- NOTE | 2024-06-19 07:57 | PTCARENOTE ---
assumed care of pt from previous shift RN, pt is oriented, confused and hallucinating at times, Vpaced on tele, VSS, + peripheral pulses, no edema. Lungs diminished, coughing and deep breathing encouraged. +bs, tolerating PO intake, incont at times.
Aquacell dressing to left chest wall, sling to left arm. PIV flushes easily. Pt assisted from bed to chair w heavy 2 person assist. Chair alarm in place. Pt reminded to call for help before getting out of chair, pt verbalized understanding of safety
precautions.
[2024-06-19] MEDS: NOVOLOG FLEXPEN-LOW RESISTANCE SC ×3 (08:14→16:37)
[2024-06-19] MEDS: ZESTRIL 20 MG PO (08:22)
[2024-06-19] MEDS: ZYLOPRIM 300 MG PO (08:22)
[2024-06-19] MEDS: ORETIC 25 MG PO (08:22)
--- NOTE | 2024-06-19 08:47 | W.PN.CD ---
Today's Communication / Plan
-
Pacer restrictions
OK to d/c
We will sign off please call with questions/concerns.
Impression / Plan
-
IMPRESSION:
1. Syncope/near syncope from complete heart block.
2. Paroxysmal complete heart block, likely infrahisian level block.
3. Pre-existing bifascicular heart block. Some EKGs also show a
first-degree AV block consistent with trifascicular block.
4. Coronary artery disease, last intervention led to a distal
circumflex stent. There was no other obstructive coronary artery
disease. The patient appears to have been fully revascularized.
5. Normal left ventricular ejection fraction 50%-55% in January
2023.
6. Mixed hyperlipidemia.
7. Hypertension.
8. Obstructive sleep apnea.
9. Diabetes mellitus.
10. Gastroesophageal reflux disease.
11. Body mass index 34.
Plan:
CHB s/p dual chamber PPM
- follow up in office
- Pacer restrictions in d/c packet
HTN
- stable
Dyslipidemia:
- cont statin
Subjective: Feels much better d/c today
Physical Exam
Vital Signs/Labs
Vital Signs
Temp Pulse Resp BP Pulse Ox
98.2 F 78 16 135/70 96
06/19/24 07:13 06/19/24 07:13 06/19/24 07:13 06/19/24 07:13 06/19/24 08:08
06/18/24 06/19/24 06/20/24
06:59 06:59 06:59
Actual Weight 239 lb 3.225 oz 238 lb 15.697 oz
06/19/24 02:57
06/19/24 02:57
Magnesium 2.1 mg/dl (1.6-2.3) 06/17/24 18:53
LAB Results
02/18/25
19:17
Troponin I < 0.012
Physical Exam
Constitutional: No acute distress and Comfortable
EENT: Anicteric
Cardiovascular: Rhythm & rate is regular and Pedal edema is absent
Respiratory: Respiratory effort normal and Lungs clear to auscul.
GI: Soft
Neuro/Psych: Alert and Oriented
Data Reviewed
-
Date of Service: June 19, 2024
EKG: Tracing Personally Visualized and interpreted (paced)
Echo: Report Reviewed by me
Labs: Labs Reviewed by me
--- NOTE | 2024-06-19 09:41 | W.DCSUMMARY ---
Discharge Summary
Discharge Data
Date of Admission: 06/17/24
Date of Discharge: 06/24/24
-
Pending Results: No
Hospital Course
Discharging Physician : Anabel Triana MD ; Jhonny Daniel MD
Disposition : SNF
Primary care physician :Les Da Silva MD
Principal Discharge diagnosis :
1. Complete heart block.
2. Essential hypertension.
3. Acute metabolic encephalopathy
4. Mixed hyperlipidemia.
5. GAGAN.
6. Ambulatory dysfunction.
7. Diabetes mellitus.
8. Gout.
9. Obstructive sleep apnea.
10. Chronic left frontal lobe CVA
11. CAD with history of stents
Hospital Course :
83-year-old male with PMH of essential hypertension, GERD, AAA, hyperlipidemia who presented to ED on 06/17/2024 with lightheadedness after slipping from his chair. He did deny head trauma, headache, dizziness, chest pain and shortness of breath
at presentation. EKG done in the ED was remarkable for third-degree heart block.
Complete heart block: Patient had a temporary transvenous pacer placed on admission which was removed the next day with implantation of Medtronic MRI conditional PPM. Dopamine was subsequently weaned off and the Cordis were pulled. Overnight,
patient became agitated necessitating further evaluation and prolonged stay in the hospital. His agitation and confusion has since improved (possibly related to anesthesia) within 2 days stay in the hospital.
Lightheadedness: Patient was evaluated with carotid ultrasound and head CT. Carotid ultrasound reported greater than 70% stenosis of left carotid artery with antegrade flow in bilateral vertebral arteries. His head CT reported left frontal lobe
postinfarct encephalomalacia. He was evaluated by vascular surgery and reports no acute symptoms. Arrangement were made for patient to follow-up with vascular surgery outpatient for further evaluation and management. In the meantime, patient will
continue taking his aspirin and Repatha.
Acute metabolic encephalopathy with agitation: Patient was started on thiamine and improved.? If disease alcohol withdrawal syndrome or thiamine deficiency with Wernicke's encephalopathy.
GAGAN: 2 days after admission, patient's creatinine bridger to 1.2 with baseline 0.8. His creatinine improved with IV fluid.
Important imaging findings :
Carotid vascular ultrasound 06/20/2024:
1. Right carotid: Calcified plaque proximal internal carotid artery. Velocity profile consistent with less than 50% internal carotid artery stenosis.
2. Left carotid: Soft plaque proximal internal carotid artery. Velocity profile consistent with likely greater than 70% stenosis.
3. Antegrade flow bilateral vertebral arteries.
Discharge Plan
-
Patient Disposition: Acute Rehab Facility
Discharge Diagnosis/Procedures: 1. Complete heart block.
2. Essential hypertension.
3. Acute metabolic encephalopathy
4. Mixed hyperlipidemia.
5. GAGAN.
6. Ambulatory dysfunction.
7. Diabetes mellitus.
8. Gout.
9. Obstructive sleep apnea.
10. Chronic left frontal lobe CVA
11. CAD with history of stents
Condition: Fair
Diet: Low Cholesterol and Diabetic, Carb Controlled
Activity: As tolerated and Other activity
Additional Activity: Pacemaker restrictions, see attached
Driving Restrictions: No driving for 1 week
Bathing Restrictions: OK to Shower
Others Tests: Please call central scheduling at [phone] head and neck scan to be done PROIR to your appointment with vascular surgeon Dr. Cosme Burton. The order for the CT scan was placed electronically.
Other Services: PT and OT
Activity Restrictions/Additional Instructions:
Patient's Own CPAP at night
Stand Alone Forms: DC Inst - Implanted Device
Referrals:
Sandee Cerda CRNP [Specified Professional Personl] - 06/27/24 10:00 am (Incision check appointment)
Les Da Silva MD [Family Provider] - in less than 1 week
Cosme Burton MD [Active] - 07/25/24 1:00 pm (please obtain CT scan prior to this appointment )
Additional Discharge Medication Instructions: Hydrochlorothiazide and lisinopril have been stopped. If blood pressure rises above 150 mm Hg consider restarting if needed.
Prescriptions:
Continued
carvedilol 12.5 MG tablet
12.5 mg PO BID
nitroglycerin 0.4 MG tablet, sublingual
0.4 mg sublingual [id number] PRN (Reason: chest pain) Qty: 25 2RF
allopurinol 300 MG tablet
300 mg PO DAILY
cyanocobalamin (vitamin B-12) 1,000 MCG tablet
1,000 mcg PO DAILY
aspirin 81 MG tablet,chewable
81 mg PO QPM
metformin 500 MG tablet extended release 24 hr
1,000 mg PO QPM
Discontinued
hydrochlorothiazide 25 MG tablet
25 mg PO DAILY
lisinopril 40 mg tablet
20 mg PO DAILY
Discharge Orders:
Discharge Patient (As Directed); Ordered 06/24/24
Ordered By: Jhonny Daniel
Care Plan Goals
Care Plan Goals:
Problem: Readiness for enhanced knowledge related to diagnosis and treatment plan
Goal: Understand your diagnosis and treatment plan needs, including medications if applicable.
Instructions: Know your diagnosis, underlying causes and treatment plan options, including medications if applicable. Consult with your health care team to learn about your diagnosis and treatment plan, including medications if applicable.
Discharge Date and Time
Discharge Date/Time: 06/24/24 14:35
Print Language: CHINESE
--- NOTE | 2024-06-19 10:33 | CON.NEURO ---
Consultation
Order
Date of Consultation: 06/19/24
Requesting Provider: Jhonny Daniel MD, Resident
Reason for Consult: e right visual field cut
Neurology Consultation Note.
HPI: This is an 84-year-old ambidextrous man who presented to [facility] on 2024 with near syncope. Neurology consultation was requested for an evaluation of normal visual winston.
Mr. Jacobs reports no complaints. He denies having headaches, change in vision, strength or sensation.
According to PT note patient was noted to have right visual field defect today.
According to EMR Mr. Jacobs was noted to be 'confused and out of it', ' grabbing nursing staff' on 06/18/2024 after PPM insertion.
Review of VS was notable for BP of 91\\42 on 06/18/2024 11:33 AM.
MAR: Propofol 40 mg 06/18/2024 11:15
FentaNYL 50 mcg 06/18/2024 10:53
Midazolam 2 mg 06/18/2024 10:34
ER VS: HR 30-28, afebrile.
PDMP:none
Labs: Normal WBCs, platelets�150, glucose�126, hemoglobin A1c�7.2
PMH: CAD, ICM, AAA, HTN, DLP, SSS, DM, Gout, vitamin B12 deficiency, BMI 34, ambulatory dysfunction, ANGELINE
PSH: PTCI, PMM, right CTS, PPM, bilateral cataract surgery.,
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
FH: Noncontributory.
All: Codeine, meloxicam, sulfas,
ROS: Constitutional: Negative. Negative for chills, fever and unexpected weight change.
HENT: Positive for chronic hearing impairment, chronic right more than left proptosis
Eyes: Negative. Negative for photophobia, pain and visual disturbance.
Respiratory: Negative for cough, choking and shortness of breath.
Cardiovascular: Negative for chest pain, palpitations and leg swelling.
Gastrointestinal: Negative for abdominal pain and vomiting.
Endocrine: Negative. Negative for cold intolerance.
Genitourinary: Negative for dysuria, flank pain and urgency.
Musculoskeletal: Negative for back pain, gait problem, neck pain and neck stiffness.
Skin: Negative for rash.
Allergic/Immunologic: Negative. Negative for immunocompromised state.
Neurological: Positive for chronic imbalance
General: Well developed. In no acute distress.
Cardio: Regular rate and rhythm without murmur. Extremities are without cyanosis or edema.
Neuro:
Mental Status: Alert, oriented to person, place, and date(today is his birthday). Mildly impaired attention, good fund of knowledge. Able to read. Follows complex requests across the midline. Comprehension, naming, and repetition intact.
Cranial Nerves: Pupils are equally round, surgical. EOMs full. Visual winston full to confrontation. R>L ptosis(chronic). No nystagmus. V1-V3 intact to light touch and pinprick bilaterally, symmetric. Face symmetric. Poor hearing AU. The
palate elevated well. SCMs and traps 5/5. Tongue midline. No dysarthria.
Motor: Normal bulk and tone. No pronator or arm drift. Strength 5/5 throughout. No clonus.
Reflexes: 2+ throughout the upper extremities and 0 knees. 0/2 in AJs. Plantar responses flexor bilaterally.
Sensory: Absent vibration at the toes and ankles.
Coordination: No dysmetria or tremor.
Gait: deferred
Assessment and Plan:
I. Transient encephalopathy, likely vascular/toxic.
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
III. Ambulatory dysfunction.
IV. Chronic bilateral blepharoptosis
-Avoid cerebral hypoperfusion
-Avoid cerebral hypoperfusion
-Please obtain carotid artery Doppler ultrasound
-Continue aspirin 81 mg once a day
-Strict glycemic and lipid control
-CT head wo contrast
-PT.
-Outpatient ophthalmology follow-up
-OP Brain MRI without maddy in 6-8 weeks
-DVT prophylaxis.
I personally reviewed all radiology and labs along with past medical records pertinent to current medical problems. Total time spent in patient care is 60 minutes.
Thank you for allowing us to participate in the care of this patient. We will continue to follow. Please do not hesitate to contact us with any questions or concerns.
Subjective/Objective
Subjective Data
Date of Service: June 19, 2024
Objective Data
Vital Signs
Temp Pulse Resp BP Pulse Ox
36.8 C 78 16 135/70 96
06/19/24 07:13 06/19/24 07:13 06/19/24 07:13 06/19/24 07:13 06/19/24 08:08
Lab Results
06/19/24 02:57
06/19/24 02:57
Sodium 137 mmol/L (135-145) 06/19/24 02:57
Potassium 4.2 mmol/L (3.5-5.1) 06/19/24 02:57
BUN 27 mg/dl (9-20) H 06/19/24 02:57
Glucose 126 mg/dl (70-99) H 06/19/24 02:57
Calcium 8.9 mg/dl (8.4-10.2) 06/19/24 02:57
Patient Allergies
codeine [Codeine] Allergy (Verified 06/17/24 18:45)
hyper
meloxicam [From Mobic] Allergy (Verified 06/17/24 18:45)
Shortness of Breath/+wheezing
Sulfa (Sulfonamide Antibiotics) Allergy (Verified 06/17/24 18:45)
severe pain
sulfamethoxazole [From Bactrim] Allergy (Verified 06/17/24 18:45)
Unknown
trimethoprim [From Bactrim] Allergy (Verified 06/17/24 18:45)
Unknown
Medications
-
Active Medications
Generic Name Dose Route Start Last Admin
Trade Name Freq PRN Reason Stop Dose Admin
Acetaminophen 650 mg 06/17/24 21:01
Acetaminophen 325 Mg Tablet PO 07/15/24 21:00
Q4HPRN PRN
mild pain/PAYNE/temp> 100.4F
Allopurinol 300 mg 06/18/24 08:00 06/19/24 08:22
Allopurinol 300 Mg Tablet PO 07/16/24 07:59 300 mg
DAILY MAR Administration
Aspirin 81 mg 06/18/24 18:00 06/18/24 17:10
Aspirin 81 Mg Chewable Tablet PO 07/16/24 17:59 81 mg
QPM MAR Administration
Bisacodyl 10 mg 06/17/24 21:01
Bisacodyl 10 Mg Rectal Suppository RECTAL 07/15/24 21:00
[id number] PRN
constipation
Dextrose 12.5 grams 06/17/24 21:01
Dextrose 50% (0.5 Grams/Ml) 50 Ml Syringe IV 07/15/24 21:00
[id number] PRN
hypoglycemia
Protocol
Glucagon 1 mg 06/17/24 21:01
Glucagon 1 Mg Vial IM 07/15/24 21:00
PRN PRN
hypoglycemia
Protocol
Hydrochlorothiazide 25 mg 06/18/24 08:00 06/19/24 08:22
Hydrochlorothiazide 25 Mg Tablet PO 07/16/24 07:59 25 mg
DAILY MAR Administration
Insulin Aspart 0 units 06/18/24 07:30 06/19/24 08:14
Insulin Aspart Low Resistance 300 Units/3 Ml Pen.Injctr SC 07/16/24 07:29 Not Given
AC MAR
Protocol
Lisinopril 20 mg 06/18/24 08:00 06/19/24 08:22
Lisinopril 20 Mg Tablet PO 07/16/24 07:59 20 mg
DAILY MAR Administration
Polyethylene Glycol 17 grams 06/17/24 21:01
Polyethylene Glycol Powder 17 Grams Packet PO 07/15/24 21:00
DAILYPRN PRN
constipation
Senna/Docusate Sodium 1 tablet 06/17/24 21:01
Docusate W/Senna (Santa-Colace) Tablet PO 07/15/24 21:00
BIDPRN PRN
constipation
Sodium Chloride 0 flush 06/17/24 22:00
Sodium Chloride 0.9% (Flush) Syringe IV 07/15/24 21:59
PER PROTOCOL MAR
Home Medications
�Medication �Instructions �Recorded
carvedilol 12.5 mg tablet 12.5 mg PO BID Heart Failure 08/02/11
nitroglycerin 0.4 mg sublingual 0.4 mg sublingual [id number] PRN 10/29/18
tablet chest pain #25 tabs
allopurinol 300 mg tablet 300 mg PO DAILY Gout 08/17/20
cyanocobalamin (vitamin B-12) 1,000 mcg PO DAILY Supplement 08/17/20
1,000 mcg tablet
hydrochlorothiazide 25 mg tablet 25 mg PO DAILY Blood pressure 04/12/21
aspirin 81 mg chewable tablet 81 mg PO QPM Blood clot 09/20/21
prevention/tx
metformin 500 mg tablet,extended 1,000 mg PO QPM Diabetes 09/20/21
release 24 hr
lisinopril 40 mg tablet 20 mg PO DAILY Blood pressure 08/16/22
Vital Signs and Labs
-
Vital Signs and Labs:
Vital Signs
Temp Pulse Resp BP Pulse Ox
36.8 C 86 16 105/91 96
06/19/24 11:20 06/19/24 11:20 06/19/24 11:20 06/19/24 11:20 06/19/24 11:20
Lab Results
06/19/24 02:57
06/19/24 02:57
Sodium 137 mmol/L (135-145) 06/19/24 02:57
Potassium 4.2 mmol/L (3.5-5.1) 06/19/24 02:57
BUN 27 mg/dl (9-20) H 06/19/24 02:57
Glucose 126 mg/dl (70-99) H 06/19/24 02:57
Calcium 8.9 mg/dl (8.4-10.2) 06/19/24 02:57
Medications
-
Medications:
Generic Name Dose Route Start Last Admin
Trade Name Freq PRN Reason Stop Dose Admin
Acetaminophen 650 mg 06/17/24 21:01
Acetaminophen 325 Mg Tablet PO 07/15/24 21:00
Q4HPRN PRN
mild pain/PAYNE/temp> 100.4F
Allopurinol 300 mg 06/18/24 08:00 06/19/24 08:22
Allopurinol 300 Mg Tablet PO 07/16/24 07:59 300 mg
DAILY MAR Administration
Aspirin 81 mg 06/18/24 18:00 06/18/24 17:10
Aspirin 81 Mg Chewable Tablet PO 07/16/24 17:59 81 mg
QPM MAR Administration
Bisacodyl 10 mg 06/17/24 21:01
Bisacodyl 10 Mg Rectal Suppository RECTAL 07/15/24 21:00
[id number] PRN
constipation
Dextrose 12.5 grams 06/17/24 21:01
Dextrose 50% (0.5 Grams/Ml) 50 Ml Syringe IV 07/15/24 21:00
[id number] PRN
hypoglycemia
Protocol
Glucagon 1 mg 06/17/24 21:01
Glucagon 1 Mg Vial IM 07/15/24 21:00
PRN PRN
hypoglycemia
Protocol
Hydrochlorothiazide 25 mg 06/18/24 08:00 06/19/24 08:22
Hydrochlorothiazide 25 Mg Tablet PO 07/16/24 07:59 25 mg
DAILY MAR Administration
Insulin Aspart 0 units 06/18/24 07:30 06/19/24 08:14
Insulin Aspart Low Resistance 300 Units/3 Ml Pen.Injctr SC 07/16/24 07:29 Not Given
AC MAR
Protocol
Lisinopril 20 mg 06/18/24 08:00 06/19/24 08:22
Lisinopril 20 Mg Tablet PO 07/16/24 07:59 20 mg
DAILY MAR Administration
Polyethylene Glycol 17 grams 06/17/24 21:01
Polyethylene Glycol Powder 17 Grams Packet PO 07/15/24 21:00
DAILYPRN PRN
constipation
Senna/Docusate Sodium 1 tablet 06/17/24 21:01
Docusate W/Senna (Santa-Colace) Tablet PO 07/15/24 21:00
BIDPRN PRN
constipation
Sodium Chloride 0 flush 06/17/24 22:00
Sodium Chloride 0.9% (Flush) Syringe IV 07/15/24 21:59
PER PROTOCOL MAR
Home Medications
-
Home Medications
carvedilol 12.5 mg tablet 12.5 mg PO BID Heart Failure 08/02/11
nitroglycerin 0.4 mg sublingual tablet 0.4 mg sublingual [id number] PRN chest pain #25 tabs 10/29/18
allopurinol 300 mg tablet 300 mg PO DAILY Gout 08/17/20
cyanocobalamin (vitamin B-12) 1,000 mcg tablet 1,000 mcg PO DAILY Supplement 08/17/20
hydrochlorothiazide 25 mg tablet 25 mg PO DAILY Blood pressure 04/12/21
aspirin 81 mg chewable tablet 81 mg PO QPM Blood clot prevention/tx 09/20/21
metformin 500 mg tablet,extended release 24 hr 1,000 mg PO QPM Diabetes 09/20/21
lisinopril 40 mg tablet 20 mg PO DAILY Blood pressure 08/16/22
--- NOTE | 2024-06-19 11:36 | PTCARENOTE ---
VSS, paced rhythm on tele. Pt impulsive and confused at times. Safety precautions maintained.
--- NOTE | 2024-06-19 14:12 | PTCARENOTE ---
pt sent to CT scan
[2024-06-19 16:05] LABS: HDL Cholesterol 44 mg/dl; LDL Cholesterol, Calculated 23 mg/dl; Total Cholesterol 84 mg/dl (50-199); Triglyceride 86 mg/dl (10-149); Very Low Density Lipoprotein 17 mg/dl (0-30)
[2024-06-19 16:12] LABS: Glucose - Point of Care 127 mg/dl (70-99)
[2024-06-19] MEDS: LOW STRENGTH ASPIRIN 81 MG PO (16:53)
--- NOTE | 2024-06-19 17:17 | PTCARENOTE ---
report given to [facility]
--- NOTE | 2024-06-19 18:00 | PTCARENOTE ---
Patient transferred from CVICU to room 407-01. Vital signs stable. Reviewed use of call howard and TV/bed controls. Patient verbalizes understanding of all teaching. Tele - 100% Vpaced/heart rate in the 80s. Resting comfortably in bed at this time
without complaint.
[2024-06-19 21:08] LABS: Glucose - Point of Care 124 mg/dl (70-99)
--- NOTE | 2024-06-20 02:39 | W.PN.UPDATE ---
Update Note
Progress Note Update
pt becoming agitated and not redirectable again tonight. Post PPM placement pt noted to have similar behavior though to be affect of anesthesia vs . Was given iv Benadryl early am 06/19 but readin RN note from that morning, this did not
help and continued to be confused and verbally agitated. Will try low dose ativan.
[2024-06-20] MEDS: ATIVAN 0.25 MG IV (02:50)
[2024-06-20] MEDS: NSS (PRESERVATIVE FREE) 0.125 ML IV (02:51)
--- NOTE | 2024-06-20 03:00 | PTCARENOTE ---
Patient agitated, confused, only oriented to self, not redirectable, attempting to get oob, attempts to kick staff when offering to help. Patient given x1 dose IV ativan, Bed alarm is on, call howard within reach. Will continue to monitor.
[2024-06-20 03:47] VITALS: BP 148/72
[2024-06-20 06:00] VITALS: BMI 33.1
--- NOTE | 2024-06-20 06:58 | W.PN.HOSP.TC ---
Addendum entered and electronically signed by Abraham Brown MD 06/20/24 22:25:
Attending Addendum-
I saw and evaluated the patient. I reviewed the resident�s note and agree with findings and plan as documented in the resident�s note. Sub: Patient with episode of extreme agitation last PM. Was given ativan with excellent results. Currently feels
weak. Pleasant. Seen with . 'I cant handle him at home' Full 12 point ROS reviewed and negative except as documented Exam: Vitals reviewed in chart GEN-NAD, Left neck incision bandaged Chest- Lt upper chest aquacell in place, LUE in sling
heart RRR lungs clear abd soft LE no edema LUE in sling pulses intact Neuro AAO x2 MS 5/5 sensation intact CN 2 - 12 GIs
Plan:
#Third-degree heart block
-temporary TV pacer placed on admission- removed
-06/18-Uncomplicated Medtronic pacemaker implant. The pacing system is MRI conditional
-weaned dopamine to off cordis pulled
-PPM activity precautions with wound care
# CAD
-h/o Cardiac stent
-Aspirin continued
-cont coreg
# TME/Agitation
- head ct-Stable chronic findings. No acute intracranial abnormality noted. No acute intracranial hemorrhage
- ativan prn
- possible AUD/Wernicke- start thiamine IV x 3 days then PO daily
- cont asa
- OP Ophtho eval and MRI 6-8 weeks
- PT OT
# Type 2 diabetes
- Hold metformin restart on DC
- sliding scale
- [id number]
# Essential hypertension
-Blood pressure stable
-HCTZ and lisinopril continue with hold parameters
-restarted coreg
# Gout
allopurinol continued
# Hyperlipidemia
-on Repatha as outpatient
# CVA- seen on head ct
- chronic
- check carotid U/S-P
- OP MRI
- cont asa repatha
# DVT prophylaxis
-SCDs
# CODE STATUS
- full code-> DNR d/w
Dispo DC to SNF when able- CM aware
Time spent coordinating care, review of plan of care with resident, personally reviewed records in EMR, med rec, consults, notes, labs, radiology, d/w nursing, � 51 mins
Original Note:
Today's Communication/Plan
-
Carotid ultrasound today.
Monitor on telemetry.
PT/OT.
Wound care.
Fall precautions.
Assessment / Plan
Assessment / Plan
83-year-old male with PMH of AAA, GERD, CM, HTN, type II DM, PR, hyperlipidemia who presented to [facility] on 06/17/2024 with lightheadedness, slid off his chair denies head trauma. Denies headache/dizziness, denies fever, chills, chest
pain, SOB, N/V/D, abdominal pain or urinary symptoms.
Assessment/plan:
#Third-degree heart block
-V-paced rhythm on telemetry.
-S/p uncomplicated Medtronic MRI compatible dual chamber pacemaker implant 06/18.
-Wound care.
-Pacemaker restrictions.
-Outpatient follow-up with cardiology.
-Cardiology appreciated.
#Transient encephalopathy
-Most likely anesthesia induced vs , no signs of infection.
-Constant reorientation.
-Ativan as needed.
-Avoid antipsychotics.
-Strict glycemic control.
#Right visual field deficit.
#Ambulatory dysfunction
-Noncontrast head CT with stable chronic findings, no acute intracranial hemorrhage noted.
-Carotid ultrasound with >70% stenosis on left internal carotid with bilateral vertebral artery antegrade flow.
-Continue ASA.
-Brain MRI in 6-8 weeks.
-Neuro input appreciated.
-Fall precautions.
-Outpt ophthalmology eval.
-No driving.
-PT/OT reevaluation.
#CAD
-S/p 6 cardiac stents
-Continue aspirin.
-Continue Coreg.
#Type II DM
-A1c 7.2.
-Hold metformin.
-Low SSI, Accu-Cheks.
#Essential hypertension
-Stable BP.
-Continue lisinopril and HCTZ with holding parameters.
-Continue Coreg.
#Chronic gout
-Continue allopurinol.
#Mixed Dyslipidemia.
-Continue outpatient Repatha.
DVT PPx: SCDs
CODE STATUS: Full code
Dispo- PT recs SNF for ambulatory disfunction if pt and agrees.
Anticipated Discharge: 24 - 48 hours
Subjective/Interval History
-
Date of Service: June 20, 2024
Patient seen and examined at bedside. Lying comfortably in the bed in no acute distress. He reported that he had a good night. He is intermittently confused. Overnight, patient was reported to be agitated, verbally aggressive and received 0.25
mg Ativan which helped. V-paced heart rhythm on telemetry. Denies any acute symptoms. No chest pain or shortness of breath, fever or chills. Surgical site clean. Remains hemodynamically stable.
Objective Data
-
Labs:
Laboratory Results
06/20/24
06:24
WBC Pending
Hgb Pending
Hct Pending
Plt Count Pending
Sodium Pending
Potassium Pending
Chloride Pending
Carbon Dioxide Pending
BUN Pending
Creatinine Pending
Glucose Pending
Calcium Pending
Vital Signs:
Vital Signs
Temp Pulse Resp BP Pulse Ox
98.5 F 82 22 148/72 97
06/20/24 03:47 06/20/24 03:47 06/20/24 03:47 06/20/24 03:47 06/20/24 03:47
I&O
06/18/24 06/19/24 06/20/24
06:59 06:59 06:59
Intake Total 1196.8 / 1196.8 340 / 340
Output Total 300 / 300 2750 / 2750 850 / 850
Balance -300 / -300 -1553.2 / -1553.2 -510 / -510
Review of Systems
-
History Source: Patient
All other systems: Not reviewed unless documented
EENT: Reports No Symptoms Reported
Respiratory: Reports No Symptoms; Denies Cough or Trouble Breathing
Cardiac: Denies Chest Pain or Palpitations
Abdomen/GI: Reports No Symptoms; Denies Abdominal Pain, Nausea, Vomiting, Diarrhea or Bloody Stools
Musculoskeletal: Reports No Symptoms
Skin: Reports No Symptoms
Neuro: Reports No Symptoms
Endocrine: Reports No Symptoms
Physical Exam
-
General: Well Developed, No Apparent Distress and Comfortable
HEENT: Normocephalic and Atraumatic
Respiratory: Clear to Auscultation
Cardiac: S1/S2 and Other (V paced rhythm); Negative Murmur or Rub
GI: Soft, Nontender, Nondistended and Normal Bowel Sounds
Musculoskeletal: No Clubbing and No Edema
Skin: Warm and Dry; Negative Rash
Neuro: Awake and AO x 3
Psych: Calm and Confused (Intermittently)
Data Reviewed
-
Diagnostic Radiology: Image personally visualized and interpreted, Report Reviewed by me and Discussed with Physician
CT Scan: Image personally visualized and interpreted, Report Reviewed by me and Discussed with Physician
Ultrasound: Image personally visualized and interpreted, Report Reviewed by me and Discussed with Physician
Labs: Labs Reviewed by me and Discussed with Physician
Old Records: Reviewed
[2024-06-20 07:00] VITALS: BP 133/69
[2024-06-20 07:44] LABS: % Basophils 0.6 % (0-2); % Eosinophils 1.6 % (0-6); % Immature Granulocytes 0.7 % (0-0.5); % Lymphocytes 14.9 % (20.5-51.1); % Monocytes 9.6 % (1.7-9.3); % Neutrophils 72.6 % (42.2-75.2); Absolute Basophils 0.1 10^3/uL (0-0.2); Absolute Eosinophils 0.1 10^3/uL (0-0.7); Absolute Immature Granulocytes 0.1 10^3/uL (0-0.05); Absolute Lymphocytes 1.2 10^3/uL (1.2-3.4); Absolute Monocytes 0.8 10^3/uL (0.1-0.6); Absolute Neutrophils 5.9 10^3/uL (1.4-6.5); Hematocrit 44.4 % (39.0-52.0); Hemoglobin 14.8 g/dL (13.0-18.0); Mean Corp Hgb Conc. 33.3 g/dL (33.0-37.0); Mean Corpuscular Hgb 29.7 pg (27.0-31.0); Mean Platelet Volume 9.7 fL (7.4-10.4); Nucleated Red Blood Cells % 0 % (-); Platelet Count 154 10^3/uL (130-400); Red Blood Cell Count 4.99 10^6/uL (4.70-6.10); Red Cell Dist. Width 13.1 % (11.5-14.5); White Blood Cell Count 8.1 10^3/uL (4.8-10.8)
[2024-06-20 07:46] LABS: Blood Urea Nitrogen 19 mg/dl (9-20); Calcium 9.4 mg/dl (8.4-10.2); Carbon Dioxide 28 mmol/L (22-30); Chloride 100 mmol/L (98-107); Estimated Creatinine Clearance 86 ml/min; Glucose 129 mg/dl (70-99); Potassium 4.2 mmol/L (3.5-5.1); Sodium 137 mmol/L (135-145); eGFR > 60.00
--- NOTE | 2024-06-20 08:00 | W.PN.NEURO.1 ---
Today's Communication / Plan
-
.
Subjective/Objective
Subjective Data
Date of Service: June 20, 2024
Neurology follow-up note.
24-hour events: Agitated in the evening, received Benadryl.
Mr. Jacobs admits to frequent alcohol use-'[place] and old-fashioned cocktails'. He is independent in AID[place] and reports no headaches, change in vision, strength tremor or visual hallucinations.
Mr. Jacobs states that he was never told to have stroke in the past.
CT head wo contrast(06/19/2024)�chronic left MCA territory infarct, stable since 2020. Mr. Jacobs was seen by neurology service in March 2021 for vertigo and imbalance. At that time brain MRI showed chronic left frontal infarct. The patient
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
PMH: CAD, ICM, AAA, HTN, DLP, SSS, DM, Gout, vitamin B12 deficiency, BMI 34, ambulatory dysfunction, ANGELINE
PSH: PTCI, PMM, right CTS, PPM, bilateral cataract, lumbar fusion,
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
FH: Noncontributory.
All: Codeine, meloxicam, sulfas,
ROS: Constitutional: Negative. Negative for chills, fever and unexpected weight change.
HENT: Positive for chronic hearing impairment, chronic right more than left proptosis
Eyes: Negative. Negative for photophobia, pain and visual disturbance.
Respiratory: Negative for cough, choking and shortness of breath.
Cardiovascular: Negative for chest pain, palpitations and leg swelling.
Gastrointestinal: Negative for abdominal pain and vomiting.
Endocrine: Negative. Negative for cold intolerance.
Genitourinary: Negative for dysuria, flank pain and urgency.
Musculoskeletal: Negative for back pain, gait problem, neck pain and neck stiffness.
Skin: Negative for rash.
Allergic/Immunologic: Negative. Negative for immunocompromised state.
Neurological: Positive for chronic imbalance
General: Well developed. In no acute distress.
Cardio: Regular rate and rhythm without murmur. Extremities are without cyanosis or edema.
Neuro:
Mental Status: Alert, oriented to person, place, and date(today is his birthday). Mildly impaired attention, good fund of knowledge. Able to read. Follows complex requests across the midline. Comprehension, naming, and repetition intact.
Cranial Nerves: Pupils are equally round, surgical. EOMs full. Visual [place]ston full to confrontation. R>L ptosis(chronic). No nystagmus. V1-V3 intact to light touch and pinprick bilaterally, symmetric. Face symmetric. Poor hearing AU. The
palate elevated well. SCMs and traps 5/5. Tongue midline. No dysarthria.
Motor: Normal bulk and tone. No pronator or arm drift. Strength 5/5 throughout. No clonus.
Reflexes: 2+ throughout the upper extremities and 0 knees. 0/2 in AJs. Plantar responses flexor bilaterally.
Sensory: Absent vibration at the toes and ankles.
Coordination: No dysmetria or tremor.
Gait: deferred
Assessment and Plan:
I. Fluctuating encephalopathy, likely vascular/toxic.
II. 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
I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
IV. Chronic bilateral blepharoptosis
-Avoid cerebral hypoperfusion
-Please follow-up carotid artery Doppler ultrasound results
-Continue aspirin 81 mg once a day
-Outpatient ophthalmology follow-up
-Start thiamine
-History glycemic control, outpatient neuropathy blood work
-OP Brain MRI without maddy in 6-8 weeks
-Outpatient neuropsychological evaluation and neurology follow-up
-DVT prophylaxis.
-Please recall neurology services any questions or concerns
I personally reviewed all radiology and labs along with past medical records pertinent to current medical problems. Total time spent in patient care is 36 minutes.
Thank you for allowing us to participate in the care of this patient. Please do not hesitate to contact us with any questions or concerns.
Objective Data
Vital Signs
Temp Pulse Resp BP Pulse Ox
36.9 C 82 22 148/72 97
06/20/24 03:47 06/20/24 03:47 06/20/24 03:47 06/20/24 03:47 06/20/24 03:47
Lab Results
06/20/24 06:24
06/20/24 06:24
Sodium 137 mmol/L (135-145) 06/20/24 06:24
Potassium 4.2 mmol/L (3.5-5.1) 06/20/24 06:24
BUN 19 mg/dl (9-20) 06/20/24 06:24
Glucose 129 mg/dl (70-99) H 06/20/24 06:24
Calcium 9.4 mg/dl (8.4-10.2) 06/20/24 06:24
LDL Cholesterol, Calc 23 mg/dl 06/19/24 15:27
Patient Allergies
codeine [Codeine] Allergy (Verified 06/17/24 18:45)
hyper
meloxicam [From Mobic] Allergy (Verified 06/17/24 18:45)
Shortness of Breath/+wheezing
Sulfa (Sulfonamide Antibiotics) Allergy (Verified 06/17/24 18:45)
severe pain
sulfamethoxazole [From Bactrim] Allergy (Verified 06/17/24 18:45)
Unknown
trimethoprim [From Bactrim] Allergy (Verified 06/17/24 18:45)
Unknown
Vital Signs and Labs
-
Vital Signs and Labs:
Vital Signs
Temp Pulse Resp BP Pulse Ox
36.9 C 82 22 148/72 97
06/20/24 03:47 06/20/24 03:47 06/20/24 03:47 06/20/24 03:47 06/20/24 03:47
Lab Results
02/21/25 06:24
06/20/24 06:24
Sodium 137 mmol/L (135-145) 06/20/24 06:24
Potassium 4.2 mmol/L (3.5-5.1) 06/20/24 06:24
BUN 19 mg/dl (9-20) 06/20/24 06:24
Glucose 129 mg/dl (70-99) H 06/20/24 06:24
Calcium 9.4 mg/dl (8.4-10.2) 06/20/24 06:24
LDL Cholesterol, Calc 23 mg/dl 06/19/24 15:27
Medications
-
Medications:
Generic Name Dose Route Start Last Admin
Trade Name Freq PRN Reason Stop Dose Admin
Acetaminophen 650 mg 06/17/24 21:01
Acetaminophen 325 Mg Tablet PO 07/15/24 21:00
Q4HPRN PRN
mild pain/PAYNE/temp> 100.4F
Allopurinol 300 mg 06/18/24 08:00 06/20/24 08:01
Allopurinol 300 Mg Tablet PO 07/16/24 07:59 300 mg
DAILY MAR Administration
Aspirin 81 mg 06/18/24 18:00 06/19/24 16:53
Aspirin 81 Mg Chewable Tablet PO 07/16/24 17:59 81 mg
QPM MAR Administration
Bisacodyl 10 mg 06/17/24 21:01
Bisacodyl 10 Mg Rectal Suppository RECTAL 07/15/24 21:00
[id number] PRN
constipation
Carvedilol 12.5 mg 06/20/24 08:00 06/20/24 08:01
Carvedilol 12.5 Mg Tablet PO 07/18/24 07:59 12.5 mg
BID MAR Administration
Dextrose 12.5 grams 06/17/24 21:01
Dextrose 50% (0.5 Grams/Ml) 50 Ml Syringe IV 07/15/24 21:00
[id number] PRN
hypoglycemia
Protocol
Glucagon 1 mg 06/17/24 21:01
Glucagon 1 Mg Vial IM 07/15/24 21:00
PRN PRN
hypoglycemia
Protocol
Hydrochlorothiazide 25 mg 06/18/24 08:00 06/20/24 08:01
Hydrochlorothiazide 25 Mg Tablet PO 07/16/24 07:59 25 mg
DAILY MAR Administration
Insulin Aspart 0 units 06/18/24 07:30 06/20/24 08:03
Insulin Aspart Low Resistance 300 Units/3 Ml Pen.Injctr SC 07/16/24 07:29 Not Given
AC MAR
Protocol
Lisinopril 20 mg 06/18/24 08:00 06/20/24 08:01
Lisinopril 20 Mg Tablet PO 07/16/24 07:59 20 mg
DAILY MAR Administration
Polyethylene Glycol 17 grams 06/17/24 21:01
Polyethylene Glycol Powder 17 Grams Packet PO 07/15/24 21:00
DAILYPRN PRN
constipation
Senna/Docusate Sodium 1 tablet 06/17/24 21:01
Docusate W/Senna (Santa-Colace) Tablet PO 07/15/24 21:00
BIDPRN PRN
constipation
Sodium Chloride 0 flush 06/17/24 22:00
Sodium Chloride 0.9% (Flush) Syringe IV 07/15/24 21:59
PER PROTOCOL MAR
Home Medications
-
Home Medications
carvedilol 12.5 mg tablet 12.5 mg PO BID Heart Failure 08/02/11
nitroglycerin 0.4 mg sublingual tablet 0.4 mg sublingual [id number] PRN chest pain #25 tabs 10/29/18
allopurinol 300 mg tablet 300 mg PO DAILY Gout 08/17/20
cyanocobalamin (vitamin B-12) 1,000 mcg tablet 1,000 mcg PO DAILY Supplement 08/17/20
hydrochlorothiazide 25 mg tablet 25 mg PO DAILY Blood pressure 04/12/21
aspirin 81 mg chewable tablet 81 mg PO QPM Blood clot prevention/tx 09/20/21
metformin 500 mg tablet,extended release 24 hr 1,000 mg PO QPM Diabetes 09/20/21
lisinopril 40 mg tablet 20 mg PO DAILY Blood pressure 08/16/22
[2024-06-20] MEDS: COREG 12.5 MG PO ×2 (08:01→20:32)
[2024-06-20] MEDS: ZESTRIL 20 MG PO (08:01)
[2024-06-20] MEDS: ZYLOPRIM 300 MG PO (08:01)
[2024-06-20] MEDS: ORETIC 25 MG PO (08:01)
[2024-06-20 08:02] LABS: Glucose - Point of Care 122 mg/dl (70-99)
[2024-06-20] MEDS: NOVOLOG FLEXPEN-LOW RESISTANCE SC (08:03)
[2024-06-20 11:00] VITALS: BP 106/64
[2024-06-20] MEDS: VITAMIN B1 100 MG PO (11:18)
[2024-06-20 12:18] LABS: Glucose - Point of Care 182 mg/dl (70-99)
[2024-06-20] MEDS: NOVOLOG FLEXPEN-LOW RESISTANCE 1 UNITS SC ×2 (12:33→18:40)
[2024-06-20 14:12] VITALS: BP 148/73; PULSE 84; O2SAT 98
[2024-06-20 17:29] LABS: Glucose - Point of Care 157 mg/dl (70-99)
[2024-06-20] MEDS: LOW STRENGTH ASPIRIN 81 MG PO (18:32)
[2024-06-20 19:16] VITALS: BP 109/58
[2024-06-20 21:44] LABS: Glucose - Point of Care 152 mg/dl (70-99)
[2024-06-20 23:45] VITALS: BP 139/72
[2024-06-21] VITALS (7 sets, daily range): BP systolic 99–142; BP diastolic 51–78
[2024-06-21 08:05] LABS: Glucose - Point of Care 138 mg/dl (70-99)
[2024-06-21 08:24] LABS: % Basophils 0.6 % (0-2); % Eosinophils 3.5 % (0-6); % Immature Granulocytes 0.6 % (0-0.5); % Lymphocytes 16.2 % (20.5-51.1); % Monocytes 12.1 % (1.7-9.3); Absolute Basophils 0.1 10^3/uL (0-0.2); Absolute Eosinophils 0.3 10^3/uL (0-0.7); Absolute Immature Granulocytes 0.1 10^3/uL (0-0.05); Absolute Lymphocytes 1.4 10^3/uL (1.2-3.4); Absolute Monocytes 1.1 10^3/uL (0.1-0.6); Absolute Neutrophils 5.9 10^3/uL (1.4-6.5); Hematocrit 38.9 % (39.0-52.0); Hemoglobin 13.3 g/dL (13.0-18.0); Mean Corp Hgb Conc. 34.2 g/dL (33.0-37.0); Mean Corpuscular Hgb 30.5 pg (27.0-31.0); Mean Corpuscular Volume 89.2 fL (80.0-94.0); Mean Platelet Volume 9.3 fL (7.4-10.4); Nucleated Red Blood Cells % 0 % (-); Platelet Count 147 10^3/uL (130-400); Red Blood Cell Count 4.36 10^6/uL (4.70-6.10); Red Cell Dist. Width 13.1 % (11.5-14.5); White Blood Cell Count 8.8 10^3/uL (4.8-10.8)
[2024-06-21] MEDS: NOVOLOG FLEXPEN-LOW RESISTANCE SC ×2 (08:38→16:22)
[2024-06-21 09:09] LABS: Blood Urea Nitrogen 29 mg/dl (9-20); Calcium 9.2 mg/dl (8.4-10.2); Carbon Dioxide 31 mmol/L (22-30); Chloride 99 mmol/L (98-107); Estimated Creatinine Clearance 69 ml/min; Glucose 140 mg/dl (70-99); Potassium 4.1 mmol/L (3.5-5.1); Sodium 136 mmol/L (135-145); eGFR > 60.00
[2024-06-21] MEDS: ZYLOPRIM 300 MG PO (09:16)
[2024-06-21] MEDS: COREG 12.5 MG PO ×2 (09:16→21:56)
[2024-06-21] MEDS: ZESTRIL 20 MG PO (09:16)
[2024-06-21] MEDS: ORETIC 25 MG PO (09:16)
[2024-06-21] MEDS: FLUSH (NSS) 2 FLUSH IV (09:17)
[2024-06-21] MEDS: THIAMINE INJECTION 200 MG IV ×3 (09:17→21:55)
--- NOTE | 2024-06-21 09:18 | W.PN.HOSP.TC ---
Today's Communication/Plan
-
see bold
Assessment / Plan
Assessment / Plan
Gen: NAD, AAOx3.
Eyes: EOMI, PERRLA, no scleral icterus.
Neck: supple.
CV: RRR, +S1/S2, no m/r/g.
Resp: CTAB, no rales, wheezes, or rhonchi.
Abd: +BS, soft, NT, ND
Skin: No rashes.
Neuro: CN 2-12 intact, non-focal.
Psych: Normal mood and affect.
CT brain: Stable chronic findings. No acute intracranial abnormality noted. No acute intracranial hemorrhage.
Carotid U/S:
1. Right carotid: Calcified plaque proximal internal carotid artery. Velocity profile consistent with less than 50% internal carotid artery stenosis.
2. Left carotid: Soft plaque proximal internal carotid artery. Velocity profile consistent with likely greater than 70% stenosis.
3. Antegrade flow bilateral vertebral arteries.
Complete heart block:
-temporary TV pacer placed on admission, now removed
-MRI conditional PPM placed 06/18/24
-weaned dopamine to off
-cordis pulled
-cards saw in c/s, signed off
h/o CVA:
-old left frontal lobe. CUS with L ICA > 70% stenosis. Pt needs to be evaluated by vascular this admission. Will have vascular see 06/23/24.
-cont ASA, outpt Repatha
Acute metabolic encephalopathy with agitation:
-CT brain above
-Ativan PRN
-Possible alcohol abuse disorder/Wernicke's, continue IV thiamine x 3 days then PO
-PT/OT
Other problems:
CAD with h/o stent: cont ASA/Coreg
DM2: Home metformin on hold. SSI/accuchecks, a1c 7.2%
Essential hypertension: cont HCTZ/Coreg/Lisinopril
Gout: cont allopurinol
Hyperlipidemia: on Repatha as outpatient
DNR/SCDs
Anticipated Discharge: > 48 hours
Subjective/Interval History
-
Date of Service: June 21, 2024
Objective Data
-
Labs:
Laboratory Results
06/21/24
08:02
WBC 8.8
Hgb 13.3
Hct 38.9 L
Plt Count 147
Sodium 136
Potassium 4.1
Chloride 99
Carbon Dioxide 31 H
BUN 29 H
Creatinine 1.0
Glucose 140 H
Calcium 9.2
Vital Signs:
Vital Signs
Temp Pulse Resp BP Pulse Ox
98.5 F 70 20 131/66 100
06/21/24 07:59 06/21/24 07:59 06/21/24 07:59 06/21/24 07:59 06/21/24 07:59
I&O
06/20/24 06/21/24 06/22/24
06:59 06:59 06:59
Intake Total 340 / 340 240 / 240
Output Total 850 / 850 700 / 700
Balance -510 / -510 -460 / -460
[2024-06-21 11:37] LABS: Glucose - Point of Care 198 mg/dl (70-99)
[2024-06-21] MEDS: NOVOLOG FLEXPEN-LOW RESISTANCE 1 UNITS SC (13:25)
[2024-06-21 16:20] LABS: Glucose - Point of Care 134 mg/dl (70-99)
[2024-06-21] MEDS: LOW STRENGTH ASPIRIN 81 MG PO (17:21)
[2024-06-21 21:38] LABS: Glucose - Point of Care 142 mg/dl (70-99)
[2024-06-22 03:37] VITALS: BP 113/50
[2024-06-22 07:52] LABS: Glucose - Point of Care 162 mg/dl (70-99)
[2024-06-22] MEDS: NOVOLOG FLEXPEN-LOW RESISTANCE 1 UNITS SC ×2 (07:54→12:35)
[2024-06-22] MEDS: THIAMINE INJECTION 200 MG IV ×3 (07:55→21:14)
[2024-06-22] MEDS: ZYLOPRIM 300 MG PO (07:55)
[2024-06-22] MEDS: ORETIC PO (07:55)
[2024-06-22] MEDS: ZESTRIL PO (07:55)
[2024-06-22] MEDS: FLUSH (NSS) 2 FLUSH IV (07:56)
[2024-06-22 07:57] VITALS: BP 103/59
[2024-06-22] MEDS: COREG 12.5 MG PO ×2 (08:02→20:12)
[2024-06-22 08:07] LABS: % Basophils 0.7 % (0-2); % Eosinophils 4.5 % (0-6); % Immature Granulocytes 0.5 % (0-0.5); % Lymphocytes 18.8 % (20.5-51.1); % Monocytes 12.5 % (1.7-9.3); Absolute Basophils 0.1 10^3/uL (0-0.2); Absolute Eosinophils 0.4 10^3/uL (0-0.7); Absolute Lymphocytes 1.6 10^3/uL (1.2-3.4); Absolute Monocytes 1.1 10^3/uL (0.1-0.6); Absolute Neutrophils 5.3 10^3/uL (1.4-6.5); Hematocrit 39.1 % (39.0-52.0); Hemoglobin 13.4 g/dL (13.0-18.0); Mean Corp Hgb Conc. 34.3 g/dL (33.0-37.0); Mean Corpuscular Hgb 30.1 pg (27.0-31.0); Mean Corpuscular Volume 87.9 fL (80.0-94.0); Mean Platelet Volume 9.9 fL (7.4-10.4); Nucleated Red Blood Cells % 0 % (-); Platelet Count 173 10^3/uL (130-400); Red Blood Cell Count 4.45 10^6/uL (4.70-6.10); Red Cell Dist. Width 13.2 % (11.5-14.5); White Blood Cell Count 8.4 10^3/uL (4.8-10.8)
[2024-06-22 08:34] LABS: Blood Urea Nitrogen 40 mg/dl (9-20); Carbon Dioxide 28 mmol/L (22-30); Chloride 98 mmol/L (98-107); Estimated Creatinine Clearance 57 ml/min; Glucose 128 mg/dl (70-99); Potassium 4.2 mmol/L (3.5-5.1); Sodium 134 mmol/L (135-145); eGFR > 60.00
[2024-06-22 09:31] VITALS: BP 109/60; BP 118/60; PULSE 78; O2SAT 98
--- NOTE | 2024-06-22 09:35 | W.PN.HOSP.TC ---
Today's Communication/Plan
-
see bold
Assessment / Plan
Assessment / Plan
Gen: NAD, AAOx3.
Eyes: EOMI, PERRLA, no scleral icterus.
Neck: supple.
CV: remains RRR, +S1/S2, no m/r/g.
Resp: remains CTAB, no rales, wheezes, or rhonchi.
Abd: +BS, soft, NT, ND
Skin: No rashes.
Neuro: remains CN 2-12 intact, non-focal.
Psych: Normal mood and affect.
CT brain: Stable chronic findings. No acute intracranial abnormality noted. No acute intracranial hemorrhage.
Carotid U/S:
1. Right carotid: Calcified plaque proximal internal carotid artery. Velocity profile consistent with less than 50% internal carotid artery stenosis.
2. Left carotid: Soft plaque proximal internal carotid artery. Velocity profile consistent with likely greater than 70% stenosis.
3. Antegrade flow bilateral vertebral arteries.
Complete heart block:
-temporary TV pacer placed on admission, now removed
-MRI conditional PPM placed 06/18/24
-weaned dopamine to off
-cordis pulled
-cards saw in c/s, signed off
h/o CVA:
-old left frontal lobe. CUS with L ICA > 70% stenosis. Pt needs to be evaluated by vascular this admission. Will have vascular see 06/23/24 (c/s placed for 06/23/24).
-cont ASA, outpt Repatha
Acute metabolic encephalopathy with agitation:
-CT brain above
-Ativan PRN
-Possible alcohol abuse disorder/Wernicke's, continue IV thiamine x 3 days then PO
-PT/OT
GAGAN:
-stop HCTZ/ACEi
Other problems:
CAD with h/o stent: cont ASA/Coreg
DM2: Home metformin on hold. SSI/accuchecks, a1c 7.2%
Essential hypertension: cont Coreg, stop HCTZ/ACEi with GAGAN and hypotension
Gout: cont allopurinol
Hyperlipidemia: on Repatha as outpatient
Obesity due to excess calories
DNR/SCDs
Anticipated Discharge: 24 - 48 hours
Subjective/Interval History
-
Date of Service: June 22, 2024
No new complaints.
Objective Data
-
Labs:
Laboratory Results
06/22/24
06:08
WBC 8.4
Hgb 13.4
Hct 39.1
Plt Count 173
Sodium 134 L
Potassium 4.2
Chloride 98
Carbon Dioxide 28
BUN 40 H
Creatinine 1.2
Glucose 128 H
Calcium 9.0
Vital Signs:
Vital Signs
Temp Pulse Resp BP Pulse Ox
98.2 F 75 18 103/59 95
06/22/24 07:57 06/22/24 07:57 06/22/24 07:57 06/22/24 07:57 06/22/24 07:57
I&O
06/21/24 06/22/24 06/23/24
06:59 06:59 06:59
Intake Total 240 / 240 680 / 680
Output Total 700 / 700 600 / 600
Balance -460 / -460 80 / 80
[2024-06-22 12:02] LABS: Glucose - Point of Care 157 mg/dl (70-99)
[2024-06-22 12:04] VITALS: BP 119/64
--- NOTE | 2024-06-22 13:30 | PTCARENOTE ---
Pt is complaining of 4/10 achy pain of his left calf. He says it feels like a knot. No erythema/edema or increased warmth. He says that he noticed it last night after he was ambulating but didn't say anything until now about it. Dr. Armstrong aware. No
change in orders, will continue to monitor.
[2024-06-22 15:09] VITALS: BP 122/70
[2024-06-22 16:25] LABS: Glucose - Point of Care 142 mg/dl (70-99)
[2024-06-22] MEDS: NOVOLOG FLEXPEN-LOW RESISTANCE SC (16:36)
[2024-06-22] MEDS: LOW STRENGTH ASPIRIN 81 MG PO (17:41)
[2024-06-22 21:06] LABS: Glucose - Point of Care 160 mg/dl (70-99)
[2024-06-22 23:11] VITALS: BP 142/66
[2024-06-23 01:04] LABS: Glucose - Point of Care 141 mg/dl (70-99)
[2024-06-23 06:37] LABS: % Basophils 0.7 % (0-2); % Eosinophils 5.5 % (0-6); % Immature Granulocytes 0.3 % (0-0.5); % Lymphocytes 18.4 % (20.5-51.1); % Monocytes 11.4 % (1.7-9.3); % Neutrophils 63.7 % (42.2-75.2); Absolute Basophils 0.1 10^3/uL (0-0.2); Absolute Eosinophils 0.4 10^3/uL (0-0.7); Absolute Lymphocytes 1.3 10^3/uL (1.2-3.4); Absolute Monocytes 0.8 10^3/uL (0.1-0.6); Absolute Neutrophils 4.4 10^3/uL (1.4-6.5); Hematocrit 39.9 % (39.0-52.0); Hemoglobin 13.8 g/dL (13.0-18.0); Mean Corp Hgb Conc. 34.6 g/dL (33.0-37.0); Mean Corpuscular Hgb 30.6 pg (27.0-31.0); Mean Corpuscular Volume 88.5 fL (80.0-94.0); Mean Platelet Volume 9.7 fL (7.4-10.4); Nucleated Red Blood Cells % 0 % (-); Platelet Count 166 10^3/uL (130-400); Red Blood Cell Count 4.51 10^6/uL (4.70-6.10)
--- NOTE | 2024-06-23 06:47 | W.PN.HOSP.TC ---
Addendum entered and electronically signed by Kamilah Little MD 06/23/24 16:13:
Seen earlier. Late documentation.
I saw and evaluated the patient. I reviewed the resident�s note and agree with findings and plan as documented in the resident�s note except for changes in my documentation
84-year-old man came to the hospital with lightheadedness
CT brain: Stable chronic findings. No acute intracranial abnormality noted. No acute intracranial hemorrhage.
Carotid U/S: Right carotid: Calcified plaque proximal internal carotid artery, less than 50% internal carotid artery stenosis.
Left carotid: Soft plaque proximal internal carotid artery. Velocity profile consistent with likely greater than 70% stenosis.
CVS: S1-S2 normal
Chest: CTA B/L
Abdomen: Soft, NT / Bowel sounds present
Extremities: No edema
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
# Complete heart block
Temporary transvenous pacer placed on admission-now removed
Off dopamine
MRI conditional PPM placed 06/18/2024
# Left frontal lobe CVA-chronic
Vascular surgery evaluation noted, OP Follow up
Continue aspirin and Repatha
OP Brain MRI without maddy in 6-8 weeks
Neurology evaluation appreciated
# Acute metabolic encephalopathy with agitation
Continue thiamine
Better
DC Ativan
# Acute kidney injury- Better .
# Coronary disease with history of RCA stent 2011 and 2020 ,LCX stent 2018, distal circumflex stent 2022-continue aspirin, Repatha, Coreg
# Diabetes hemoglobin A1c 7.2
Restart metformin.
Accu-Cheks and sliding scale coverage
# Hypertension-continue Coreg. Hydrochlorothiazide/lisinopril on hold secondary to hypotension.
# Gout-continue allopurinol
# Hyperlipidemia-continue Repatha. Statin intolerant
# Sleep izhxk-IICK-bbjvjzi has not been using in the hospital. Encouraged to bring his machine so he can use it here.
# Ambulatory dysfunction-Distal symmetric sensory large fiber polyneuropathy.
# Obesity with a BMI of 33
# DVT prophylaxis-SCDs
# DNR
D/W RN
D/W at bed side
Original Note:
Today's Communication/Plan
-
Vascular consult
Fall precautions
CM for dispo
Assessment / Plan
Assessment / Plan
83-year-old male with PMH of AAA, GERD, CM, HTN, type II DM, [place], hyperlipidemia who presented to [facility] on 06[facility]17/[facility]24 with lightheadedness, slid off his chair denies head trauma. Denies headache/dizziness, denies fever, chills, chest
pain, SOB, N/V/D, abdominal pain or urinary symptoms.
Assessment/plan:
#Third-degree heart block
-V-paced rhythm on telemetry.
-S/p uncomplicated Medtronic MRI compatible dual chamber pacemaker implant 06/18.
-Pacemaker restrictions.
-Outpatient follow-up with cardiology.
-Cardiology appreciated.
#Transient encephalopathy with agitations
-Most likely alcohol abuse disorder with Wernicke's encephalopathy.
-Continue IV thiamine day 3/3, transition to p.o. in a.m.
-Ativan as needed.
-Avoid antipsychotics.
-Strict glycemic control.
#Right visual field deficit.
#Ambulatory dysfunction
-Carotid ultrasound with >70% stenosis on left internal carotid with bilateral vertebral artery antegrade flow.
-Outpatient CTA by vascular, patient asymptomatic.
-Appreciate vascular.
-Continue ASA and Repatha.
-Brain MRI in 6-8 weeks.
-Neuro input appreciated.
-Fall precautions.
-Outpt ophthalmology eval.
-No driving.
-PT/OT.
#CAD
-S/p 6 cardiac stents
-Continue aspirin.
-Continue Coreg.
#Type II DM
-A1c 7.2.
-Hold metformin.
-Low SSI, Accu-Cheks.
#Essential hypertension
-Stable BP.
-Continue lisinopril and HCTZ with holding parameters.
-Continue Coreg.
#Chronic gout
-Continue allopurinol.
#Mixed Dyslipidemia.
-Continue outpatient Repatha.
DVT PPx: SCDs
CODE STATUS: Full code
Data:
Carotid ultrasound 06/20/2024:
1. Right carotid: Calcified plaque proximal internal carotid artery. Velocity profile consistent with less than 50% internal carotid artery stenosis.
2. Left carotid: Soft plaque proximal internal carotid artery. Velocity profile consistent with likely greater than 70% stenosis.
3. Antegrade flow bilateral vertebral arteries.
Anticipated Discharge: 24 - 48 hours
Subjective/Interval History
-
Date of Service: June 23, 2024
Patient seen and examined with at bedside. There was no acute event reported overnight. Patient's reports that patient uses BiPAP at home but has refused to use BiPAP while in the hospital. Patient reports feeling okay today and is
amenable to going to rehab. He does not have any chest pain, palpitations, headaches, fever or chills. Subjectively, patient looks better today.
Objective Data
-
Labs:
Laboratory Results
06/23/24
05:27
WBC 7.0
Hgb 13.8
Hct 39.9
Plt Count 166
Sodium Pending
Potassium Pending
Chloride Pending
Carbon Dioxide Pending
BUN Pending
Creatinine Pending
Glucose Pending
Calcium Pending
Vital Signs:
Vital Signs
Temp Pulse Resp BP Pulse Ox
98.2 F 76 22 142/66 95
06/22/24 23:11 06/22/24 23:11 06/22/24 23:11 06/22/24 23:11 06/22/24 23:11
I&O
06/21/24 06/22/24 06/23/24
06:59 06:59 06:59
Intake Total 240 / 240 680 / 680 1200 / 1200
Output Total 700 / 700 600 / 600 1275 / 1275
Balance -460 / -460 80 / 80 -75 / -75
Review of Systems
-
History Source: Patient
All other systems: Not reviewed unless documented
EENT: Reports No Symptoms Reported
Respiratory: Reports No Symptoms; Denies Cough or Trouble Breathing
Cardiac: Denies Chest Pain or Palpitations
Abdomen/GI: Reports No Symptoms; Denies Abdominal Pain, Nausea, Vomiting, Diarrhea or Bloody Stools
Musculoskeletal: Reports No Symptoms
Skin: Reports No Symptoms
Neuro: Reports No Symptoms
Endocrine: Reports No Symptoms
Physical Exam
-
General: Well Developed, No Apparent Distress and Comfortable
HEENT: Normocephalic and Atraumatic
Respiratory: Clear to Auscultation
Cardiac: S1/S2 and Other (V paced rhythm); Negative Murmur or Rub
GI: Soft, Nontender, Nondistended and Normal Bowel Sounds
Musculoskeletal: No Clubbing and No Edema
Skin: Warm and Dry; Negative Rash
Neuro: Awake and AO x 3
Psych: Calm
Data Reviewed
-
Ultrasound: Image personally visualized and interpreted, Report Reviewed by me and Discussed with Physician
[2024-06-23 06:49] LABS: Blood Urea Nitrogen 36 mg/dl (9-20); Calcium 9.6 mg/dl (8.4-10.2); Carbon Dioxide 27 mmol/L (22-30); Chloride 102 mmol/L (98-107); Estimated Creatinine Clearance 69 ml/min; Glucose 134 mg/dl (70-99); Potassium 4.4 mmol/L (3.5-5.1); Sodium 135 mmol/L (135-145); eGFR > 60.00
[2024-06-23 07:30] VITALS: BP 113/58
[2024-06-23 07:30] LABS: Glucose - Point of Care 153 mg/dl (70-99)
[2024-06-23] MEDS: THIAMINE INJECTION 200 MG IV ×3 (08:38→22:23)
[2024-06-23] MEDS: ZYLOPRIM 300 MG PO (08:40)
[2024-06-23] MEDS: COREG 12.5 MG PO ×2 (08:40→20:01)
[2024-06-23] MEDS: NOVOLOG FLEXPEN-LOW RESISTANCE 1 UNITS SC ×3 (08:41→16:54)
[2024-06-23 11:47] LABS: Glucose - Point of Care 163 mg/dl (70-99)
--- NOTE | 2024-06-23 12:36 | CON.VAS ---
Consultation
Consultation Request
Performing Provider: Micheal
Reason for Consultation: Carotid stenosis
Medical History
-
Chief Complaint: Dizziness
History of Present Illness:
84-year-old with past medical history for AAA, GERD, cardiomyopathy, hypertension, obstructive sleep apnea, type 2 diabetes, [place], hyperlipidemia presented to the emergency room on 06/17/2024 with lightheadedness. Admitted with third-degree heart
block for permanent pacemaker.
On 06/20/2024 patient was having episodes of agitation and confusion (possibly related to anesthesia). Carotid ultrasound and head CT were obtained at that time. Results below.
Carotid ultrasound: IMPRESSION:
1. Right carotid: Calcified plaque proximal internal carotid artery. Velocity profile consistent with less than 50% internal carotid artery stenosis.
2. Left carotid: Soft plaque proximal internal carotid artery. Velocity profile consistent with likely greater than 70% stenosis.
3. Antegrade flow bilateral vertebral arteries.
Head CT: 'left frontal lobe, there is a stable focus of postinfarct encephalomalacia, similar to prior examination'
Vascular consult for the above findings.
Patient seen at bedside this afternoon with Dr. Burton. Patient offers no complaints at this time. Patient states he has not had a syncopal event since arriving in the ER. Denies any strokelike symptoms. Denies change in vision, loss of vision,
weakness to an arm or leg, difficulty speaking or getting words out.
Past Medical History
Past Medical History: Other (GERD, AAA, ischemic cardiomyopathy, hypertension, CAD, obstructive sleep apnea, type 2 diabetes, spinal fusion, bundle branch block, hyperlipidemia, [place], sciatica, gout, nonalcoholic fatty liver disease, colon polyps,
diverticulitis)
Past Surgical History: Cardiac (Stents)
Social History
Tobacco: Former Smoker
Alcohol: Daily
Personal:
Living: With Family
Family History
Family History: Reviewed & Not Pertinent
Allergies / Home Medications
Allergy/AdvReac Type Severity Reaction Status Date / Time
codeine [Codeine] Allergy hyper Verified 06/17/24 18:45
meloxicam [From Mobic] Allergy Shortness Verified 06/17/24 18:45
of
Breath/+wheezing
Sulfa (Sulfonamide Allergy severe pain Verified 06/17/24 18:45
Antibiotics)
sulfamethoxazole Allergy Unknown Verified 06/17/24 18:45
[From Bactrim]
trimethoprim [From Bactrim] Allergy Unknown Verified 06/17/24 18:45
�Medication �Instructions �Recorded �Confirmed �Type
carvedilol 12.5 mg tablet 12.5 mg PO BID Heart Failure 08/02/11 06/17/24 History
nitroglycerin 0.4 mg sublingual 0.4 mg sublingual [id number] PRN 10/29/18 06/17/24 Rx
tablet chest pain #25 tabs
allopurinol 300 mg tablet 300 mg PO DAILY Gout 08/17/20 06/17/24 History
cyanocobalamin (vitamin B-12) 1,000 mcg PO DAILY Supplement 08/17/20 06/17/24 History
1,000 mcg tablet
hydrochlorothiazide 25 mg tablet 25 mg PO DAILY Blood pressure 04/12/21 06/17/24 History
aspirin 81 mg chewable tablet 81 mg PO QPM Blood clot 09/20/21 06/17/24 History
prevention/tx
metformin 500 mg tablet,extended 1,000 mg PO QPM Diabetes 09/20/21 06/17/24 History
release 24 hr
lisinopril 40 mg tablet 20 mg PO DAILY Blood pressure 08/16/22 06/17/24 History
Review of Systems
-
History Source: Patient
Constitutional: Reports No Symptoms
EENT: Reports No Symptoms
Respiratory: Reports No Symptoms
Cardiac: Reports Syncope
Vascular: Denies Leg Pain / Claudication
Abdomen/GI: Reports No Symptoms
: Reports No Symptoms
Musculoskeletal: Reports No Symptoms
Skin: Reports No Symptoms
Neurological: Reports No Symptoms
Physical Exam
Vital Signs
Temp Pulse Resp BP Pulse Ox
97.9 F 75 18 113/58 92
06/23/24 07:30 06/23/24 07:30 06/23/24 07:30 06/23/24 07:30 06/23/24 07:30
Lab Results
06/23/24 05:27
06/23/24 05:27
Troponin I < 0.012 ng/ml 06/17/24 19:17
Physical Exam
General: No Apparent Distress
HEENT: Normocephalic and Atraumatic
Respiratory: Non Labored Respirations
Cardiac: Negative JVD
GI: Soft and Non Tender
Musculoskeletal: No Clubbing, No Cyanosis and No Edema
Skin: Warm
Neuro: Awake, Alert and Oriented
Psych: Calm
Assessment / Plan
-
84-year-old male here for third review heart block with placement of permanent pacemaker
Had carotid ultrasound on this admission suggesting 70% stenosis of the left ICA
Vascular consult for above finding
Left carotid stenosis.
Ultrasound reviewed. Left carotid with soft plaque and velocity profile consistent with greater than 70% stenosis. Although the end-diastolic velocity and ICA/CCA ratio may be suggestive of a lesser degree of stenosis. Regardless he is
asymptomatic at this point. Therefore recommend CT angiogram to better assess degree of stenosis (this can be done as outpatient and we will arrange for this) and then he can follow-up with me to discuss risk/benefits of revascularization versus
continued conservative management if indeed significant stenosis is confirmed.
Data Reviewed
-
Ultrasound: Discussed with Patient
--- NOTE | 2024-06-23 12:39 | W.PN.UPDATE ---
Update Note
Progress Note Update
Seen and examined with BENNETT Galvan and BENNETT Guillory. Full consultation to follow. Briefly 84-year-old male with extensive medical history. Presented with type III heart block and underwent pacemaker placement had a syncopal episode from what was
described. Patient denies any episodes of amaurosis, unilateral numbness or weakness, speech dysarthria. No prior strokes that he was aware of. Carotid imaging demonstrated carotid stenosis. His exam is nonfocal.
Plan/ Left carotid stenosis.
Ultrasound reviewed. Left carotid with soft plaque and velocity profile consistent with greater than 70% stenosis. Although the end-diastolic velocity and ICA/CCA ratio may be suggestive of a lesser degree of stenosis. Regardless he is
asymptomatic at this point. Therefore recommend CT angiogram to better assess degree of stenosis (this can be done as outpatient and we will arrange for this) and then he can follow-up with me to discuss risk/benefits of revascularization versus
continued conservative management if indeed significant stenosis is confirmed.
[2024-06-23 15:15] VITALS: BP 149/75
[2024-06-23 16:30] LABS: Glucose - Point of Care 156 mg/dl (70-99)
--- NOTE | 2024-06-23 16:47 | CM ---
PT OT indicated SNF.
Checked with [facility] no beds today or tomorrow
Spoke with pt and reviewed SNF choices.
They picked [facility] .
Susanne at [facility] aware Texted NPI
[facility]
report [phone]
fax [phone]
PLAN To [facility] after auth
[2024-06-23] MEDS: LOW STRENGTH ASPIRIN 81 MG PO (16:55)
[2024-06-23] MEDS: GLUCOPHAGE 500 MG PO (17:01)
[2024-06-23 21:21] LABS: Glucose - Point of Care 131 mg/dl (70-99)
[2024-06-23 23:41] VITALS: BP 123/66
[2024-06-24 06:51] LABS: % Immature Granulocytes 0.5 % (0-0.5); % Lymphocytes 20.9 % (20.5-51.1); % Monocytes 11.6 % (1.7-9.3); Absolute Basophils 0.1 10^3/uL (0-0.2); Absolute Eosinophils 0.4 10^3/uL (0-0.7); Absolute Lymphocytes 1.2 10^3/uL (1.2-3.4); Absolute Monocytes 0.7 10^3/uL (0.1-0.6); Absolute Neutrophils 3.5 10^3/uL (1.4-6.5); Hematocrit 40.3 % (39.0-52.0); Hemoglobin 13.6 g/dL (13.0-18.0); Mean Corp Hgb Conc. 33.7 g/dL (33.0-37.0); Mean Corpuscular Volume 88.8 fL (80.0-94.0); Mean Platelet Volume 9.4 fL (7.4-10.4); Nucleated Red Blood Cells % 0 % (-); Platelet Count 180 10^3/uL (130-400); Red Blood Cell Count 4.54 10^6/uL (4.70-6.10); Red Cell Dist. Width 12.9 % (11.5-14.5); White Blood Cell Count 5.9 10^3/uL (4.8-10.8)
--- NOTE | 2024-06-24 06:53 | W.PN.HOSP.TC ---
Addendum entered and electronically signed by Kamilah Little MD 06/24/24 15:37:
I saw and evaluated the patient. I reviewed the resident�s note and agree with findings and plan as documented in the resident�s note.
late documentation.
Patient was seen earlier. He denied any complaints. Was feeling good and was waiting for rehab
Hold hydrochlorothiazide and lisinopril at discharge as planned
Can be restarted if blood pressure goes up
Patient to follow-up with Dr. Burton's outpatient for the appointment
Discussed with nursing and case management
More than 30 minutes spent in discharge including
Final examination of the patient
Summarizing hospital stay
Instructions for continuing care to all relevant caregivers
Preparation of discharge records, prescriptions, and referral forms
Total time spent (in minutes): 39 min
Original Note:
Today's Communication/Plan
-
Stop lisinopril, HCTZ
Discharge planning
Assessment / Plan
Assessment / Plan
83-year-old male with PMH of AAA, GERD, CM, HTN, type II DM, RI, hyperlipidemia who presented to [facility] on 06/17/2024 with lightheadedness, slid off his chair denies head trauma. Denies headache/dizziness, denies fever, chills, chest
pain, SOB, N/V/D, abdominal pain or urinary symptoms.
Assessment/plan:
#Third-degree heart block
-S/p uncomplicated Medtronic MRI compatible dual chamber pacemaker implant 06/18.
-Pacemaker restrictions.
-Outpatient follow-up with cardiology.
-Cardiology appreciated.
#Chronic left frontal lobe CVA
-Carotid ultrasound with >70% stenosis on left internal carotid with bilateral vertebral artery antegrade flow.
-Evaluated by vascular surgery, will see outpatient.
-Outpatient brain MRI in 6 to 8 weeks.
-Continue home aspirin and Repatha.
-Appreciate neurology
#Transient acute metabolic encephalopathy with agitations
-Alcohol withdrawal, hypercapnia.
-Resolved with thiamine, BiPAP use.
-Continue thiamine
-Avoid antipsychotics.
-Strict glycemic control.
#Right visual field deficit.
#Ambulatory dysfunction
#CAD
-S/p 6 cardiac stents
-Continue aspirin and Coreg.
#Type II DM
-A1c 7.2.
-Metformin restarted.
-Low SSI, Accu-Cheks.
#Essential hypertension
-Stable BP.
-Lisinopril and HCTZ discontinued due to hypotension.
-Continue Coreg.
#Chronic gout
-Continue allopurinol.
#Mixed Dyslipidemia.
-Continue outpatient Repatha.
DVT PPx: SCDs
CODE STATUS: Full code
Data:
Carotid ultrasound 06/20/2024:
1. Right carotid: Calcified plaque proximal internal carotid artery. Velocity profile consistent with less than 50% internal carotid artery stenosis.
2. Left carotid: Soft plaque proximal internal carotid artery. Velocity profile consistent with likely greater than 70% stenosis.
3. Antegrade flow bilateral vertebral arteries.
Anticipated Discharge: Today
Subjective/Interval History
-
Date of Service: June 24, 2024
Patient was seen and examined at bedside sitting in a chair in no acute distress. Reports that he slept well last night with his BiPAP. Close no acute event reported overnight. He denies dizziness, chest pain, shortness of breath, abdominal pain
fever or chills.
Objective Data
-
Labs:
Laboratory Results
06/24/24
05:49
WBC 5.9
Hgb 13.6
Hct 40.3
Plt Count 180
Sodium Pending
Potassium Pending
Chloride Pending
Carbon Dioxide Pending
BUN Pending
Creatinine Pending
Glucose Pending
Calcium Pending
Vital Signs:
Vital Signs
Temp Pulse Resp BP Pulse Ox
98.1 F 71 20 123/66 96
06/23/24 23:41 06/23/24 23:41 06/23/24 23:41 06/23/24 23:41 06/23/24 23:41
I&O
06/22/24 06/23/24 06/24/24
06:59 06:59 06:59
Intake Total 680 / 680 1200 / 1200 960 / 960
Output Total 600 / 600 1275 / 1275 1200 / 1200
Balance 80 / 80 -75 / -75 -240 / -240
Review of Systems
-
History Source: Patient
All other systems: Not reviewed unless documented
EENT: Reports No Symptoms Reported
Respiratory: Reports No Symptoms; Denies Cough or Trouble Breathing
Cardiac: Denies Chest Pain or Palpitations
Abdomen/GI: Reports No Symptoms; Denies Abdominal Pain, Nausea, Vomiting, Diarrhea or Bloody Stools
Musculoskeletal: Reports No Symptoms
Skin: Reports No Symptoms
Neuro: Reports No Symptoms
Endocrine: Reports No Symptoms
Physical Exam
-
General: Well Developed, No Apparent Distress and Comfortable
HEENT: Normocephalic and Atraumatic
Respiratory: Clear to Auscultation
Cardiac: S1/S2 and Other (V-paced rhythm); Negative Murmur or Rub
GI: Soft, Nontender, Nondistended and Normal Bowel Sounds
Musculoskeletal: No Clubbing and No Edema
Skin: Warm and Dry; Negative Rash
Neuro: Awake and AO x 3
Psych: Calm
Data Reviewed
-
Ultrasound: Image personally visualized and interpreted, Report Reviewed by me and Discussed with Physician
[2024-06-24 07:14] LABS: Blood Urea Nitrogen 36 mg/dl (9-20); Calcium 9.7 mg/dl (8.4-10.2); Carbon Dioxide 26 mmol/L (22-30); Chloride 99 mmol/L (98-107); Estimated Creatinine Clearance 69 ml/min; Glucose 132 mg/dl (70-99); Potassium 4.4 mmol/L (3.5-5.1); Sodium 134 mmol/L (135-145); eGFR > 60.00
[2024-06-24 07:26] LABS: Glucose - Point of Care 135 mg/dl (70-99)
[2024-06-24 07:55] VITALS: BP 121/61
[2024-06-24] MEDS: NOVOLOG FLEXPEN-LOW RESISTANCE SC ×2 (08:18→12:34)
[2024-06-24] MEDS: COREG 12.5 MG PO (08:18)
[2024-06-24] MEDS: ZYLOPRIM 300 MG PO (08:18)
[2024-06-24] MEDS: GLUCOPHAGE 500 MG PO (08:18)
[2024-06-24 10:33] VITALS: BP 124/66; PULSE 69; O2SAT 96
[2024-06-24 10:34] VITALS: BP 124/66; PULSE 63; O2SAT 95
--- NOTE | 2024-06-24 10:58 | PTCARENOTE ---
Patient with complaints of a slightly sore throat. MD notified. COVID/Flu swab sent and pending.
[2024-06-24 11:15] LABS: COVID-19 Antigen Negative (Negative)
[2024-06-24 12:20] LABS: Glucose - Point of Care 148 mg/dl (70-99)
--- NOTE | 2024-06-24 12:23 | CM ---
MD indicated discharge today.
PT OT indicated SNF.
Couple picked [facility] .
Susanne at [facility] has bed.
Called [facility] [phone] spoke with Davin [phone] . Clinical provided. Auth obtained from 06/24/24 to 06/27/24 Auth #
[id number] NRD call [phone] option 5.
Information give to Susanne she accepted pt.
LM with Carol . Spoke with pt he is in agreement with [facility] today. IMM reviewed with pt . He agrees with dc today.
Pt said he [facility] will transport him today to SNF.
[facility]
report [phone]
fax [phone]
PLAN To [facility]
[2024-06-24 14:07] VITALS: BP 115/68
== END 2024-06-24 14:35 | DRG 242 ==
LOC: 4 EAST ACU 19:42
PROVIDERS: Internal Medicine Interventional Cardiology; Nurse Practitioner; Registered Nurse; Student in an Organized Health Care Education/Training Program; ADMITTING PHYSICIAN Internal Medicine; ATTENDING PHYSICIAN Hospitalist; CONSULT PHYSICIAN Internal Medicine Cardiovascular Disease; CONSULT PHYSICIAN Psychiatry & Neurology Neurology; EMERGENCY PHYSICIAN Emergency Medicine; FAMILY PHYSICIAN Family Medicine
PROC: 5A09357 Assistance with Respiratory Ventilation, Less than 24 Consecutive Hours, Continuous Positive Airway Pressure (ICD-10-PCS; 2024-06-17)
PROC: 5A1223Z Performance of Cardiac Pacing, Continuous (ICD-10-PCS; 2024-06-17)
PROC: 02H63JZ Insertion of Pacemaker Lead into Right Atrium, Percutaneous Approach (ICD-10-PCS; 2024-06-18)
PROC: 02HK3JZ Insertion of Pacemaker Lead into Right Ventricle, Percutaneous Approach (ICD-10-PCS; 2024-06-18)
PROC: 0JH606Z Insertion of Pacemaker, Dual Chamber into Chest Subcutaneous Tissue and Fascia, Open Approach (ICD-10-PCS; 2024-06-18)
DX: I44.2 Atrioventricular block, complete (principal); G92.8 Other toxic encephalopathy; N17.9 Acute kidney failure, unspecified; F10.239 Alcohol dependence with withdrawal, unspecified; I10 Essential (primary) hypertension; E78.2 Mixed hyperlipidemia; E11.65 Type 2 diabetes mellitus with hyperglycemia; E11.40 Type 2 diabetes mellitus with diabetic neuropathy, unspecified; Z79.84 Long term (current) use of oral hypoglycemic drugs; M10.9 Gout, unspecified; G47.33 Obstructive sleep apnea (adult) (pediatric); I25.10 Atherosclerotic heart disease of native coronary artery without angina pectoris; Z95.5 Presence of coronary angioplasty implant and graft; Z86.73 Personal history of transient ischemic attack (TIA), and cerebral infarction without residual deficits; K21.9 Gastro-esophageal reflux disease without esophagitis; K76.0 Fatty (change of) liver, not elsewhere classified; Z87.891 Personal history of nicotine dependence; Z86.0100 Personal history of colon polyps, unspecified; Z88.2 Allergy status to sulfonamides; Z79.82 Long term (current) use of aspirin; Z88.5 Allergy status to narcotic agent; Z79.899 Other long term (current) drug therapy; M19.90 Unspecified osteoarthritis, unspecified site; Z82.49 Family history of ischemic heart disease and other diseases of the circulatory system; I65.22 Occlusion and stenosis of left carotid artery; I45.2 Bifascicular block; E66.09 Other obesity due to excess calories; Z68.33 Body mass index [BMI] 33.0-33.9, adult; Z66 Do not resuscitate; H53.40 Unspecified visual field defects; M54.30 Sciatica, unspecified side; E53.8 Deficiency of other specified B group vitamins; H02.409 Unspecified ptosis of unspecified eyelid; G93.89 Other specified disorders of brain; I25.5 Ischemic cardiomyopathy; K57.90 Diverticulosis of intestine, part unspecified, without perforation or abscess without bleeding; Z98.1 Arthrodesis status; Z11.52 Encounter for screening for COVID-19; R00.1 Bradycardia, unspecified
CPT/HCPCS: 33208; 33210; 70450; 71045; 80048; 80053; 80061; 82962; 83036; 83735; 84443; 84484; 85025; 85027; 87502; 87811; 93005; 93880; 94660; 97110; 97112; 97116; 97163; 97167; 97530; 97535; 99285; C1769; C1785; C1887; C1892; C1894; C1898; Q9967

== ENCOUNTER → 2024-07-14 12:25 | Outpatient (REF) | payer OTHER, SELFPAY | LOC: RAD 12:25 | PROVIDERS: ATTENDING PHYSICIAN Surgery Vascular Surgery; FAMILY PHYSICIAN Family Medicine | DX: I65.29 Occlusion and stenosis of unspecified carotid artery (principal) | CPT/HCPCS: 70496; 70498; Q9967 ==

== ENCOUNTER 2024-08-25 05:53 | Inpatient (IN) | payer OTHER, SELFPAY ==
[2024-08-20 09:30] VITALS: BMI 36.6
[2024-08-20 10:05] LABS: % Basophils 1.2 % (0-2); % Eosinophils 3.8 % (0-6); % Immature Granulocytes 0.5 % (0-0.5); % Lymphocytes 23.9 % (20.5-51.1); % Monocytes 8.5 % (1.7-9.3); % Neutrophils 62.1 % (42.2-75.2); Absolute Basophils 0.1 10^3/uL (0-0.2); Absolute Eosinophils 0.2 10^3/uL (0-0.7); Absolute Lymphocytes 1.4 10^3/uL (1.2-3.4); Absolute Monocytes 0.5 10^3/uL (0.1-0.6); Absolute Neutrophils 3.6 10^3/uL (1.4-6.5); Hematocrit 44.3 % (39.0-52.0); Hemoglobin 14.6 g/dL (13.0-18.0); Mean Corpuscular Hgb 29.6 pg (27.0-31.0); Mean Corpuscular Volume 89.7 fL (80.0-94.0); Mean Platelet Volume 9.3 fL (7.4-10.4); Nucleated Red Blood Cells % 0 % (-); Platelet Count 185 10^3/uL (130-400); Red Blood Cell Count 4.94 10^6/uL (4.70-6.10); Red Cell Dist. Width 13.8 % (11.5-14.5); White Blood Cell Count 5.9 10^3/uL (4.8-10.8)
[2024-08-20 10:20] LABS: INR 0.88; PT 12.4 Sec (11.4-14.6)
[2024-08-20 10:21] LABS: APTT 28.7 Sec (23.4-35.0)
[2024-08-20 10:57] LABS: Blood Urea Nitrogen 19 mg/dl (9-20); Calcium 10.2 mg/dl (8.4-10.2); Carbon Dioxide 30 mmol/L (22-30); Chloride 103 mmol/L (98-107); Estimated Creatinine Clearance 85 ml/min; Glucose 119 mg/dl (70-99); Potassium 5.4 mmol/L (3.5-5.1); Sodium 144 mmol/L (135-145); eGFR > 60.00
[2024-08-25] VITALS (11 sets, daily range): BP systolic 98–161; BP diastolic 55–87; BMI 34.4
[2024-08-25] MEDS: BACTROBAN NASAL 1 GRAM NASAL (06:51)
[2024-08-25] MEDS: PERIDEX 0.12% ORAL RINSE 15 ML PO (06:51)
[2024-08-25 06:52] LABS: Glucose - Point of Care 145 mg/dl (70-99)
[2024-08-25] MEDS: NSS 500 IV (06:52)
[2024-08-25] MEDS: PLAVIX 75 MG PO (06:53)
[2024-08-25] MEDS: LOW STRENGTH ASPIRIN 81 MG PO (06:54)
--- NOTE | 2024-08-25 07:13 | W.SUR.PREOP ---
Pre-Operative Surgical Note
-
I have examined this patient prior to the performance of the scheduled procedure.
The patient's condition is unchanged from the time of the current History and
Physical and the patient is able to undergo the scheduled procedure.
[2024-08-25 08:51] LABS: ACT-LR - POC 260 Seconds (116-155)
--- NOTE | 2024-08-25 09:14 | W.SUR.POST ---
Surgical Immediate Post Op
Note
Pre Op Diagnosis: Left Carotid Stenosis
Post Op Diagnosis: Left Carotid Stenosis
Procedure Performed: Left TCAR
Flow reversal time: 9 minutes
Primary Surgeon: Cosme Burton MD
Ginner Helper: MAGGIE Mancilla
Anesthesia: GETA
Estimated Blood Loss: 25 ml
Fluids: See anesthesia flowsheet
Drains/Shunts: N/A
Specimens/Cultures: N/A
Doppler/Duplex/Angio (Y/N): Y
Complications: None
Operative Findings: Successful endovascular deployment of carotid stent, upon awakening patient was able to move BL LE and UE to command and spontaneously
--- NOTE | 2024-08-25 10:08 | OR.RPT ---
Addendum entered and electronically signed by Cosme Burton MD 08/25/24 10:10:
Fluoroscopy time: 4.9 minutes
Dose: 130 mGy
DAP: 12.06
Original Note:
Operative Report
Operative Report
PROCEDURE DATE: 08/25/2024
Preoperative diagnosis: Asymptomatic critical left carotid artery stenosis
Postoperative diagnosis: same
Procedure:
1. Open exposure of left common carotid artery.
2. Transcarotid left artery revascularization with stent (TCAR) with Enroute reverse tapered 7mm-9mm x 30mm self-expanding stent, and utilizing Enroute FERRY PILOT flow reversal intraprocedural neuro protection.
3. Duplex assisted right common femoral vein cannulation.
4. Intraoperative EEG/SSEP monitoring.
5. Supervision and interpretation
Surgeon: Micheal
Art Gallery Director: BENNETT Galvan, required for all aspects of procedure including assistance with traction/countertraction, following of suture line, balloon and stent delivery.
Complications: None
Anesthesia: General
Indications for procedure:
Critical left carotid artery stenosis. High bifurcation anatomically. Risk/benefits/alternatives of TCAR fully discussed. Patient understood all wished to proceed.
Description of procedure:
Patient was identified brought to the operating room placed on the table in supine position. After the adequate administration of anesthesia and perioperative antibiotics he was prepped and draped in the standard surgical fashion. A standard
preoperative timeout was undertaken and everybody was in agreement the plan. A longitudinal incision was made at the base of the left neck between the heads of the sternocleidomastoid muscle just superior to the clavicle. This incision was carried
through the skin subcutaneous tissue. Using the electrocautery dissection was carried through the platysma muscle layer and then in the plane between the heads of the sternocleidomastoid muscle. Then using a combination of sharp dissection with
the Metzenbaum scissors and electrocautery I dissected along the anterior medial border of the internal jugular vein. The common carotid artery was identified and carefully dissected away from the surrounding structures take great care to avoid any
injury to the structures. There was noted to be a few centimeters deep to the jugular vein, and I had noted this on CT scan. Therefore dissection proved a little bit challenging due to the depth. In addition, it appeared that the vagus nerve was
anterior. It was carefully teased off and mobilized away without grasping the nerve. Great care was taken avoid any injury to it. The artery was then carefully dissected circumferentially. A vessel loop was passed around it. The common carotid
artery was dissected circumferentially only in the proximal portion of the exposed artery, and the anterior surface was dissected for another 2 cm. Next, a 5-0 Prolene pursestring stitch was placed on the anterior middle surface of the common
carotid artery at the anticipated puncture/cannulation site.
Next, the right common femoral vein was punctured with a micropuncture kit under direct duplex ultrasound guidance. An 8 Macedonian venous sheath was placed over 0.035 inch wire into the vein. The sheath was flushed. The patient was now given 10197
units of intravenous heparin.
Next, while maintaining anterior tension on the vessel loop (single looped), the common carotid artery was punctured with a micropuncture needle (premarked) to only 1 cm and a premarked 0.014 inch wire was inserted and then the needle was exchanged
out for a premarked micropuncture sheath and advanced to 3 cm shelton. The dilator and wire were then removed. AP projection angiogram was performed (based on CT scan we felt that this was a good projection angle). This delineated the carotid
bifurcation. It confirmed the severe stenosis in the proximal internal carotid artery. The carotid bifurcation was marked on the screen. Given the depth of the carotid, our runway of common carotid artery her trunk and a little bit. Therefore I
elected to wire carefully into the external carotid artery. The micropuncture sheath dilator was then advanced back in the micropuncture sheath as the hole was advanced into the external carotid artery. I puffed some contrast to confirm I was
indeed in the external carotid artery. I then advanced a 0.035 inch wire with a J curve at the tip into the external carotid artery. I then exchanged the micropuncture sheath out for the [address] [place] [address] sheath, which was advanced to
the footplate under fluoroscopy with careful vigilance of the distal tip of the wire. Once advanced to the footplate, the introducer and wire were removed. The tension from the vessel loop was released. And the sheath was secured to the skin with
silk suture. The sheath was burped back and also flushed carefully. Next repeat imaging was undertaken confirming the best angulation of the gantry for imaging. At this point, the angioplasty balloon and stent were prepared. We paused to confirm
the plan regarding balloon/stent, and confirmed adequate ACT. Next, I connected the arterial sheath to the venous sheath with the filter section. As such passive flow reversal was initiated. There were no evidence of any EEG or SSEP changes. We
flushed the venous sheath to confirm adequate passive flow reversal.
At this point given that we were otherwise ready, I tightened my double looped vessel loop on the common carotid artery thereby initiating active flow reversal. Again I flushed the venous sheath to confirm active flow reversal. There was no EEG or
SSEP changes. I now used a precurved 0.014 inch wire and roadmap assisted fluoroscopy guidance to cannulate the internal carotid artery carefully. I was able to gain access into the distal cervical/proximal intracranial internal carotid artery.
Next I used a balloon which was a 5 mm x 30 mm standard angioplasty balloon. I then pre-angioplastied the stenosis. The patient's blood pressure had also been optimized after discussion with our anesthesiology colleagues prior to initiation of
flow reversal. I then quickly exchanged out my balloon catheter for the stent 7mm-9mm (reverse tapered) x 30mm Enroute stent. The stent was positioned under roadmap guidance. When I was happy with the positioning I then unsheathed in the standard
fashion. The stent delivery device was then removed. Completion angiography was undertaken after 2 minutes of waiting after deployment of the stent for the flow reversal to take effect. Completion angiogram demonstrated excellent result and it
was done in 2 obliquities to confirm. No residual stenosis was noted. Good intracranial filling was noted. At this point I was very satisfied. The 0.014 inch wire was then removed from the internal carotid artery. Next, the common carotid
artery was unclamped. Finally I disconnected the flow reversal circuit.
Now, I tied down my 5-0 Prolene pursestring suture on the common carotid artery while removing the sheath. An additional 5-0 and 6-0 prolene [id number] suture was placed for full hemostasis. We gave protamine to reverse the heparin. I
irrigated the incision site and confirmed full hemostasis. Then, we closed in layers using a couple interrupted 2-0 Vicryl to reapproximate the sternocleidomastoid heads. Then used 3-0 Vicryl platysma muscle running layer followed by 4-0 Monocryl
subcuticular running stitch. Dermabond was applied. The femoral vein sheath was also removed and manual pressure was applied to that site and hemostasis was noted there as well. The patient tolerated the procedure well. He awoke moving all 4
extremities to command. All sponge, needle, instrument counts were correct at the end of the case. Patient was transported to the recovery room in stable condition.
[2024-08-25 10:11] LABS: Glucose - Point of Care 160 mg/dl (70-99)
[2024-08-25 10:38] LABS: Hematocrit 36.4 % (39.0-52.0); Hemoglobin 12.7 g/dL (13.0-18.0); Mean Corp Hgb Conc. 34.9 g/dL (33.0-37.0); Mean Corpuscular Hgb 30.8 pg (27.0-31.0); Mean Corpuscular Volume 88.3 fL (80.0-94.0); Mean Platelet Volume 9.2 fL (7.4-10.4); Platelet Count 137 10^3/uL (130-400); Red Blood Cell Count 4.12 10^6/uL (4.70-6.10); Red Cell Dist. Width 13.7 % (11.5-14.5); White Blood Cell Count 6.4 10^3/uL (4.8-10.8)
[2024-08-25 11:04] LABS: Blood Urea Nitrogen 18 mg/dl (9-20); Calcium 8.8 mg/dl (8.4-10.2); Carbon Dioxide 24 mmol/L (22-30); Chloride 107 mmol/L (98-107); Estimated Creatinine Clearance 88 ml/min; Glucose 168 mg/dl (70-99); Potassium 4.6 mmol/L (3.5-5.1); Sodium 140 mmol/L (135-145); eGFR > 60.00
[2024-08-25] MEDS: NSS 1000 IV ×2 (11:20→22:48)
[2024-08-25 11:31] LABS: Glucose - Point of Care 137 mg/dl (70-99)
--- NOTE | 2024-08-25 11:48 | PTCARENOTE ---
pt received from pacu- aox4, av paced with bbb on monitor, place on room air sats 94%, ekg completed per order. pt oriented to room, all safety precautions in place, bed alarm on and functioning, call howard within reach. pt neuro check wnl, pt right
groin site c/d/i positive pulses, left neck incision c/d/i- no swelling noted. right radial chalo zeroed and functioning. and pt educated on plan of care and bed rest orders, both verbalized understanding to all education provided.
--- NOTE | 2024-08-25 11:53 | PTCARENOTE ---
Addendum entered by Tasia Ascencio RN 08/25/24 11:55:
and pt educated on plan of care and bed rest orders, both verbalized understanding to all education provided.
Original Note:
pt received from pacu- aox4, av paced with bbb on monitor, place on room air sats 94%, ekg completed per order. pt oriented to room, all safety precautions in place, bed alarm on and functioning, call howard within reach. pt neuro check wnl, pt right
groin site c/d/i positive pulses, left neck incision c/d/i- no swelling noted. left radial chalo zeroed and functioning.
--- NOTE | 2024-08-25 13:01 | CON.INTV ---
Consultation
Consultation Request
Date/Time Consultation Requested: 08/25/24-1 p.m.
Date/Time Consultation Performed: 08/25/24-1:20 PM
Requesting Provider: Vascular surgery
Performing Provider: Dr. Patel
Reason for Consultation: Postoperative critical care management
Medical History
-
Chief Complaint: Carotid stenosis
History of Present Illness:
84-year-old male with history of CAD, hyperlipidemia, diabetes, GERD, ANGELINE on CPAP noted to have high-grade left carotid stenosis and underwent transcarotid left artery revascularization with stent-staff cytotechnologist consulted for postoperative critical
care management 08/25/2024. . I am seeing the patient postoperatively in the surgical intensive care unit. He denies any incisional pain, shortness of breath, chest pain, chest tightness, mucus, abdominal pain, nausea, leg weakness or focal weakness
Past Medical History
Past Medical History: None (CAD/stent. Ischemic cardiomyopathy. Hypertension. Hyperlipidemia. Former smoker. AAA. Colon polyp. Diabetes. GERD. ANGELINE on CPAP. Overweight. Fatty liver. Lumbar laminectomy. Right rotator cuff.)
Past Surgical History: Other
Social History
Tobacco: Former Smoker
Drug: None
Living: With Family
Occupational Exposures: No known asbestos exposure
Environmental Exposures: No known tuberculosis exposure
Family History
Family History: Other (CAD)
Allergies / Home Medications
Allergies
Allergy/AdvReac Type Severity Reaction Status Date / Time
codeine [Codeine] Allergy hyper Verified 08/18/24 13:05
meloxicam [From Mobic] Allergy Shortness Verified 08/18/24 13:05
of
Breath/+wheezing
Ncfpyxh-SZX-QaD Reductase Allergy myalgias Verified 08/25/24 06:30
Inhibitor
Sulfa (Sulfonamide Allergy severe pain Verified 08/18/24 13:05
Antibiotics)
sulfamethoxazole Allergy Unknown Verified 08/18/24 13:05
[From Bactrim]
tramadol Allergy dizzy Verified 08/25/24 06:30
trimethoprim [From Bactrim] Allergy Unknown Verified 08/18/24 13:05
Home Medications
�Medication �Instructions �Recorded �Confirmed �Last Taken �Type
carvedilol 12.5 mg tablet 12.5 mg PO BID Heart Failure 08/02/11 08/25/24 08/24/24 20:00 History
nitroglycerin 0.4 mg sublingual 0.4 mg sublingual [id number] PRN 10/29/18 08/18/24 04/26/22 Rx
tablet chest pain #25 tabs
allopurinol 300 mg tablet 300 mg PO DAILY Gout 08/17/20 08/25/24 08/24/24 08:00 History
cyanocobalamin (vitamin B-12) 1,000 mcg PO QMWF Supplement 08/17/20 08/25/24 08/22/24 08:00 History
1,000 mcg tablet
aspirin 81 mg chewable tablet 81 mg PO QPM Blood clot 09/20/21 08/25/24 08/23/24 20:00 History
prevention/tx
metformin 500 mg tablet,extended 1,000 mg PO QPM Diabetes 09/20/21 08/25/24 08/23/24 18:00 History
release 24 hr
Benadryl Pm 1 dose PO PRN PRN congestion 08/18/24 08/18/24 Unknown History
Tylenol PM 1 dose PO DAILY PRN Pain 08/18/24 08/18/24 Unknown History
acetaminophen 500 mg tablet 500 mg PO Q6H PRN pain 08/18/24 08/18/24 Unknown History
(Tylenol Extra Strength)
clopidogrel 75 mg tablet 75 mg PO QPM Blood Clot 08/18/24 08/25/24 08/24/24 08:00 History
Prevention/Tx
diphenhydramine HCl 25 mg capsule 25 mg PO HS PRN sleep 08/18/24 08/18/24 Unknown History
(ZzzQuil)
evolocumab 140 mg/mL subcutaneous 140 mg SC Q2W High Cholesterol 08/18/24 08/25/24 08/24/24 08:00 History
pen injector (Brian Fuentes)
ibuprofen 200 mg tablet (Advil) 200 mg PO Q6H PRN pain 08/18/24 08/18/24 Unknown History
ibuprofen-diphenhydramine citrate 1 cap PO HS PRN pain 08/18/24 08/18/24 Unknown History
200 mg-38 mg tablet (Advil PM)
ipratropium bromide 21 mcg (0.03 2 spray intranasal BID 08/18/24 08/25/24 08/24/24 20:00 History
%) nasal spray Lung/Breathing Issues
Review of Systems
-
Unable to Obtain full review of systems at this time due to: Other (Per HPI)
Vitals / Labs / Diagnostic Testing
Vital Signs
Temp Pulse Resp BP Pulse Ox
97.2 F 60 22 120/68 94
08/25/24 11:40 08/25/24 11:30 08/25/24 11:30 08/25/24 11:30 08/25/24 11:49
Lab Data
08/25/24 10:09
08/25/24 10:09
Diagnostic Testing:
Physical Exam
-
Exam:
Well-nourished and well-developed in no apparent distress
HEENT-atraumatic, normocephalic, left carotid incision without edema
Neck-supple, no JVD, no bruit
Heart-regular rate and rhythm-no murmurs, rubs or gallops
Chest-clear to auscultation, no wheezes, crackles
Back-no tenderness
Abdomen-soft, nontender, nondistended, no hepatosplenomegaly
Extremities-no cyanosis, clubbing, edema and good peripheral pulses
Integument-intact, no rashes, lesions or ecchymosis
Neurology-alert and oriented, nonfocal motor and sensory exam
Assessment
-
84-year-old male with history of CAD, hyperlipidemia, diabetes, GERD, ANGELINE on CPAP noted to have high-grade left carotid stenosis and underwent transcarotid left artery revascularization with stent-staff cytotechnologist consulted for postoperative critical
care management 08/25/2024.
Asymptomatic critical left carotid artery stenosis
Status post transcarotid left artery revascularization with stent-Dr. Burton -08/25/24
Mild vzvqsk-muvqtmunkq-lgyowpzyvp 12.7
Hyperglycemia-blood sugar 168
Conditions present prior to admission:
CAD/stent.
Ischemic cardiomyopathy.
Hypertension.
Hyperlipidemia.
Former smoker.
AAA.
Colon polyp.
Diabetes.
GERD.
ANGELNIE on CPAP.
Overweight.
Fatty liver.
Lumbar laminectomy. Right rotator cuff.
Plan
Postoperative surgical intensive care unit monitoring
Supplemental oxygen as needed
Incentive spirometry
Aspiration precautions
CPAP 15 cm- At night as tolerated
Neuro and vascular checks per protocol
Monitor blood pressure/perfusion pressures and pulses closely
Vascular surgery following-correspondence and operative notes reviewed
Monitor blood sugar
Insulin supplementation as needed
DVT prophylaxis
Early nutrition
Early mobilization
Patient followed in the pulmonary office-last saw Florence Flores [address] 12/13/2023- Told to make appointment November 2024
Critical care statement: A total of 55 minutes of critical care time was provided for this patient today. This includes management of unstable vital signs, evaluation of the patient at bedside, reviewing the patient's pertinent medical records
including radiographs, microbiology, laboratory evaluations, and discussion with primary team, consultants, pharmacy, nutrition, physical therapy, case management, charge nurse, critical care nursing, and respiratory therapy.
Diagnostic data:
Chest x-ray 09/16/2021-NAD
Chest x-ray 06/18/2024-pacer leads extending to the right atrium and right ventricle, no pneumothorax
CT head and neck 07/14/2024-no intracranial process, moderate atrophy, prominence of ventricular system appears similar to prior, near-total occlusion left carotid bifurcation/proximal left ICA
Cardiac catheterization 06/17/2024-successful placement of temporary transvenous pacemaker via right internal jugular venous system with sheath secured and secured in place along with temporary venous pacemaker
PSG 2004-AHI-63, desaturation carri 81%, CPAP 15 cm
Data Reviewed
-
EKG: Report reviewed by me
Radiology: Report reviewed by me
CT Scan: Report reviewed by me
Medical Tests (Nuc Med, Echo etc): Report reviewed by me
Labs: Labs reviewed by me
Old Records: Reviewed
Critical Care Time (in minutes): 55
--- NOTE | 2024-08-25 13:58 | PTCARENOTE ---
pt unable to void, bladder scanned for >800- anselmo dreger vascular inpatient care manager rn notified. pt straight cathed for 850cc yellow urine per order.
--- NOTE | 2024-08-25 15:20 | PTCARENOTE ---
pt noted with slight left tongue deviation- picture sent via tiger text to Alejandra Guillory CAMERA REPAIR TECHNICIAN and Va Galvan CAMERA REPAIR TECHNICIAN. pt moves tongue side to side. neuro assessment WNL otherwise. no further orders at this time. remains av paced, resting comfortably,
denies pain. ice therapy as ordered.
--- NOTE | 2024-08-25 16:21 | CM ---
Patient seen at bedside in ICU with patient present. Per and patient previously he had gone to [facility] and he plans to go home with this admission. Patient and indicated that prior to admission he resided with his spouse in a
one story home with five steps to the porch and two steps to enter the home. Patient had a quad cane, and a CPAP machine at home. Patient PCP is Dr. Da Silva and he uses [facility]. CM will continue to follow for discharge planning needs.
Plan; home with VN vs SNF pending functional assessment/needs
[2024-08-25 16:39] LABS: Glucose - Point of Care 116 mg/dl (70-99)
--- NOTE | 2024-08-25 19:30 | PTCARENOTE ---
Resumed care of pt this evening. Received pt w/ right radial A-line in place and NSS infusing via left peripheral IV site. Pt presents A&Ox3, can move all 4 extremities and can make needs known. Neurological and post angiography checks remain
unchanged. Pt's eyes are equal and reactive to light. Pt is AV paced on tele monitor and has palpable pedal pulses bilaterally. Pt on RA satting at 93% pulse ox. On auscultation pt lungs are diminished at the bases bilaterally but otherwise clear.
Pt does get orthopneic and CLOUD. Pt's abdomen is round w/ hypoactive BS. Pt voiding yellow colored urine in urinal. Pt's left neck and right groin surgical dressing are both intact.
[2024-08-25] MEDS: HEPARIN 5000 UNITS SC (20:55)
[2024-08-25] MEDS: COREG 12.5 MG PO (20:56)
[2024-08-26] VITALS (11 sets, daily range): BP systolic 106–142; BP diastolic 52–92; PULSE 64–66; BMI 34.5
--- NOTE | 2024-08-26 | PTCARENOTE ---
Upon reassessment pt's neurological checks and post angiography checks remain unchanged. Pt resting comfortably while wearing CPAP from home.
[2024-08-26 04:05] LABS: Hematocrit 35.6 % (39.0-52.0); Hemoglobin 12.2 g/dL (13.0-18.0); Mean Corp Hgb Conc. 34.3 g/dL (33.0-37.0); Mean Corpuscular Hgb 30.4 pg (27.0-31.0); Mean Corpuscular Volume 88.8 fL (80.0-94.0); Mean Platelet Volume 9.6 fL (7.4-10.4); Platelet Count 149 10^3/uL (130-400); Red Blood Cell Count 4.01 10^6/uL (4.70-6.10); Red Cell Dist. Width 13.6 % (11.5-14.5); White Blood Cell Count 8.6 10^3/uL (4.8-10.8)
[2024-08-26 04:13] LABS: PT 13.5 Sec (11.4-14.6)
[2024-08-26 04:14] LABS: APTT 29.2 Sec (23.4-35.0)
[2024-08-26 04:33] LABS: Blood Urea Nitrogen 17 mg/dl (9-20); Calcium 9.1 mg/dl (8.4-10.2); Carbon Dioxide 26 mmol/L (22-30); Chloride 109 mmol/L (98-107); Estimated Creatinine Clearance 78 ml/min; Glucose 139 mg/dl (70-99); Potassium 4.4 mmol/L (3.5-5.1); Sodium 139 mmol/L (135-145); eGFR > 60.00
--- NOTE | 2024-08-26 07:14 | W.PN.INTV ---
Today's Communication / Plan
Recommendations
neurovascularly intact
Discontinue arterial line
Discontinue intravenous fluids
Increase activity/physical therapy
Stable for transfer out of ICU-call pulmonary if respiratory issues arise
Assessment
-
84-year-old male with history of CAD, hyperlipidemia, diabetes, GERD, ANGELINE on CPAP noted to have high-grade left carotid stenosis and underwent transcarotid left artery revascularization with stent-cullet crusher consulted for postoperative critical
care management 08/25/2024.
Asymptomatic critical left carotid artery stenosis
Status post transcarotid left artery revascularization with stent-Dr. Burton -08/25/24
Mild oyphec-anwwyszuda-quazymeqsw 12.7
Hyperglycemia-blood sugar 168
Conditions present prior to admission:
CAD/stent.
Ischemic cardiomyopathy.
Hypertension.
Hyperlipidemia.
Former smoker.
AAA.
Colon polyp.
Diabetes.
GERD.
ANGELINE on CPAP.
Overweight.
Fatty liver.
Lumbar laminectomy. Right rotator cuff.
Plan
Hemodynamically and neurovascularly intact
Wean supplemental oxygen
Incentive spirometry encourage
Aspiration precautions
Monitor hemoglobin
Transfuse if needed
Monitor blood sugars
Insulin supplementation if needed
Neuro and vascular checks per protocol also continue
Vascular surgery closely-Correspondence reviewed
DVT prophylaxis recommended
Nutrition
Increase activity/physical therapy
Patient can be transferred out of ICU-call pulmonary if respiratory issues arise
Patient followed in the pulmonary office-last saw Florence Flores NP 12/13/2023- Told to make appointment November 2024
Reviewed the patient's pertinent medical records including radiographs, microbiology, laboratory evaluations, and discussion with primary team, consultants, pharmacy, nutrition, physical therapy, case management, charge nurse, critical care
nursing, and respiratory therapy.
Diagnostic data:
Chest x-ray 09/16/2021-NAD
Chest x-ray 06/18/2024-pacer leads extending to the right atrium and right ventricle, no pneumothorax
CT head and neck 07/14/2024-no intracranial process, moderate atrophy, prominence of ventricular system appears similar to prior, near-total occlusion left carotid bifurcation/proximal left ICA
Cardiac catheterization 06/17/2024-successful placement of temporary transvenous pacemaker via right internal jugular venous system with sheath secured and secured in place along with temporary venous pacemaker
PSG 2004-AHI-63, desaturation carri 81%, CPAP 15 cm
Subjective Dataa
Subjective Data
Date of Service:
Date of Service: August 26, 2024
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
Subjective:
slept well, pain controlled, no complaints of shortness of breath, chest pain, abdominal pain
Review of Systems
General: Other ( Per HPI)
Objective Data
Data Reviewed
Vital Signs / I&O / Oxygen:
Vital Signs
Temp Pulse Resp BP Pulse Ox
98.8 F 63 15 106/59 98
08/26/24 03:36 08/26/24 05:45 08/26/24 05:45 08/26/24 00:00 08/26/24 06:00
Intake and Output
08/25/24 08/26/24 08/27/24
06:59 06:59 06:59
Intake Total 1620 / 1620
Output Total 2200 / 2200
Balance -580 / -580
SaO2 98
Nasal Cannula flow liters per 2
minute
Physical Exam
General: Respiratory Distress (n) and Comfortable
HEENT: Normocephalic, Anicteric and Other ( left neck carotid incision well-healed, no hematoma)
Cardiovascular: Regular Rhythm and Murmur
Respiratory: Wheeze (n), Crackles (n), Rhonchi (n), Non-Labored Respirations, Accessory Resp Muscle Use (n) and Stridor (n)
GI: Soft, Non Distended and Non Tender
Neurology: Awake, Alert and No Motor Deficits
Skin: Warm, Good Color, Cyanosis (n) and Jaundice (n)
Labs/Micro/Reports
Lab Data
08/26/24 03:49
08/26/24 03:49
Laboratory Results
08/26/24
03:49
PT 13.5
INR 1.00
APTT 29.2
[2024-08-26] MEDS: HEPARIN 5000 UNITS SC (07:36)
[2024-08-26] MEDS: COREG 12.5 MG PO (07:36)
[2024-08-26] MEDS: ZYLOPRIM 300 MG PO (07:36)
--- NOTE | 2024-08-26 07:48 | W.PN.VS ---
Addendum entered and electronically signed by Cali Peralta III, MD 08/26/24 10:08:
This patient was seen and examined in collaboration with MAGGIE Drake. I agree with the history and physical exam as well as the assessment and plan. I have the following additions:
No complaints
Looks good with no significant events overnight
Neck incision clean and dry
Neck is soft
Agree with plan as detailed
Signed:
Cali Peralta III, MD
Vascular Surgery
[facility] ([facility]
Original Note:
Today's Communication / Plan
-
Patient seen and examined at bedside with Dr. Cali Peralta III, below plan reviewed with attending.
Assessment/Plan
-
Assessment: 84-year-old male POD #1 left TCAR
Plan:
Discontinue arterial line
Discontinue IV fluid
OOB to chair with progression to ambulation as tolerated
Continue DAPT of Plavix 75 mg p.o. daily and aspirin 81 mg p.o. daily
Possible discharge later this afternoon pending patient progression
Subjective Data
-
Date of Service: August 26, 2024
Patient seen and evaluated at bedside, offers no complaints. Reports tolerating p.o. intake. Denies headache, nausea, vomiting, fever, and chills. Reports eagerness for discharge to home.
Objective Data
-
Vital Signs
Temp Pulse Resp BP Pulse Ox
98.8 F 63 15 106/59 98
08/26/24 03:36 08/26/24 05:45 08/26/24 05:45 08/26/24 00:00 08/26/24 06:00
Intake and Output
08/25/24 08/26/24 08/27/24
06:59 06:59 06:59
Intake Total 1620 / 1620
Output Total 2200 / 2200
Balance -580 / -580
Intake:
IV fluids (Total) 1620 / 1620
Normosol 100 / 100
ns @80 1520 / 1520
Output:
Urine, Peralta 800 / 800
Urine, Voided 550 / 550
Straight cath output 850 / 850
Other:
How many times incontinent 1
MODERATE amount urine
Lab Results
08/26/24 03:49
08/26/24 03:49
Calcium 9.1 mg/dl (8.4-10.2) 08/26/24 03:49
Physical Exam
-
No apparent distress, resting in bed comfortably
Left neck site CDI, no evidence of hematoma, face symmetrical, tongue midline
No tachycardia
No dyspnea on room air
Moves bilateral upper extremities and lower extremities to command and spontaneous with equal movement and strength
[2024-08-26 08:03] LABS: Glucose - Point of Care 129 mg/dl (70-99)
--- NOTE | 2024-08-26 08:47 | PTCARENOTE ---
pt received from previous rn- aox4, neuro checks wnl, REGAN. av paced on monitor with a bbb. right radial chalo was zeroed and functioning. removed per order per vascular team. pressure dressing applied. pt educated on plan of care for shift-
verbalized understanding. right groin site c/d/i, left neck incision leilani and intact. all safety precautions in place.
--- NOTE | 2024-08-26 09:20 | PTCARENOTE ---
pt two assist oob to commode and chair with walker.
--- NOTE | 2024-08-26 12:19 | SUR.PHASEI ---
Alejandra Guillory Embossing Clerk aware pt forgetful at times, but answers all orientation questions appropriately. pt worked with PT and OT, pts at bedside- per pt and , pt functioning at baseline.
[2024-08-26 12:21] LABS: Glucose - Point of Care 114 mg/dl (70-99)
--- NOTE | 2024-08-26 12:53 | CM ---
Patient seen at bedside in ICU with and Nursing. Per Patient patient at baseline when working with therapy and she would like to have patient come home. IMM provided to patient and signed form to be placed on chart. Patient requested
referral to [facility] for home health care. CM will send referral to [facility] and patient for possible discharge home today. CM will continue to follow for discharge planning needs.
Plan; home with [facility]; pending acceptance
--- NOTE | 2024-08-26 13:43 | W.DS.TRANS ---
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
-
Discharge Instructions:
Discharge Diagnosis/Procedures Left transcarotid artery vascularization (TCAR)
Diet As tolerated,Diabetic, Carb Controlled
Activity No strenuous activity
Driving Restrictions No driving for 1 week
Bathing Restrictions OK to Shower
Other Services PT,VN
Instructions:
Stand-Alone Forms: DC Instr - Vascular OR
Changes to Home Medications: Yes
Discharge Medications:
DC Medications w/original date entered in [employer]
carvedilol 12.5 mg tablet 12.5 mg PO BID Heart Failure 08/02/11
nitroglycerin 0.4 mg sublingual tablet 0.4 mg sublingual [id number] PRN chest pain #25 tabs 10/29/18
allopurinol 300 mg tablet 300 mg PO DAILY Gout 08/17/20
cyanocobalamin (vitamin B-12) 1,000 mcg tablet 1,000 mcg PO QMWF Supplement 08/17/20
aspirin 81 mg chewable tablet 81 mg PO QPM Blood clot prevention/tx 09/20/21
metformin 500 mg tablet,extended release 24 hr 1,000 mg PO QPM Diabetes 09/20/21
Tylenol PM 1 dose PO DAILY PRN Pain 08/18/24
acetaminophen 500 mg tablet (Tylenol Extra Strength) 500 mg PO Q6H PRN pain 08/18/24
clopidogrel 75 mg tablet 75 mg PO QPM Blood Clot Prevention/Tx 08/18/24
diphenhydramine HCl 25 mg capsule (ZzzQuil) 25 mg PO HS PRN sleep 08/18/24
evolocumab 140 mg/mL subcutaneous pen injector (Repatha [employer]) 140 mg SC Q2W High Cholesterol 08/18/24
ibuprofen 200 mg tablet (Advil) 200 mg PO Q6H PRN pain 08/18/24
ibuprofen-diphenhydramine citrate 200 mg-38 mg tablet (Advil PM) 1 cap PO HS PRN pain 08/18/24
ipratropium bromide 21 mcg (0.03 %) nasal spray 2 spray intranasal BID Lung/Breathing Issues 08/18/24
Home Medication Changes
Hold for 48 hours:
metformin 500 mg tablet,extended release 24 hr 1,000 mg PO QPM Diabetes 09/20/21
Pending Results: No
[2024-08-26] MEDS: LOW STRENGTH ASPIRIN 81 MG PO (13:52)
[2024-08-26] MEDS: PLAVIX 75 MG PO (13:52)
--- NOTE | 2024-08-26 14:19 | PTCARENOTE ---
pt and given discharge instructions, both verbalized understanding to education and instructions. pt given aspirin and plavix per order. pt wheelchaired down by staff. ivs removed, pressure dressings applied.
--- NOTE | 2024-08-26 14:20 | PTCARENOTE ---
pt sent home with all belongings and home cpap.
== END 2024-08-26 14:10 | disposition home or self-care (01) | DRG 35 ==
LOC: ICU 05:53
PROVIDERS: Nurse Practitioner; ADMITTING PHYSICIAN Surgery Vascular Surgery; CONSULT PHYSICIAN Internal Medicine Critical Care Medicine; FAMILY PHYSICIAN Family Medicine
PROC: 037L3DZ Dilation of Left Internal Carotid Artery with Intraluminal Device, Percutaneous Approach (ICD-10-PCS; 2024-08-25)
DX: I65.22 Occlusion and stenosis of left carotid artery (principal); I45.2 Bifascicular block; I45.3 Trifascicular block; I25.5 Ischemic cardiomyopathy; G47.33 Obstructive sleep apnea (adult) (pediatric); K21.9 Gastro-esophageal reflux disease without esophagitis; I10 Essential (primary) hypertension; E78.5 Hyperlipidemia, unspecified; E66.3 Overweight; I25.10 Atherosclerotic heart disease of native coronary artery without angina pectoris; E11.65 Type 2 diabetes mellitus with hyperglycemia; Z68.34 Body mass index [BMI] 34.0-34.9, adult; Z87.891 Personal history of nicotine dependence; Z95.5 Presence of coronary angioplasty implant and graft
CPT/HCPCS: 36415; 37215; 71045; 80048; 82962; 85025; 85027; 85610; 85730; 86850; 86900; 86901; 93005; 95938; 95941; 95955; 97163; 97167; 97530; C1725; C1769; C1894; Q9967

== ENCOUNTER → 2024-09-17 08:54 | Outpatient (REF) | payer OTHER, SELFPAY | LOC: RAD 08:54 | PROVIDERS: ATTENDING PHYSICIAN Registered Nurse; FAMILY PHYSICIAN Family Medicine | DX: I65.22 Occlusion and stenosis of left carotid artery (principal) | CPT/HCPCS: 93880 ==

== ENCOUNTER → 2024-12-15 09:35 | Outpatient (REF) | payer OTHER, SELFPAY | LOC: RAD 09:35 | PROVIDERS: ATTENDING PHYSICIAN Family Medicine | DX: M25.551 Pain in right hip (principal); M25.552 Pain in left hip | CPT/HCPCS: 73523 ==

== ENCOUNTER → 2025-03-18 09:47 | Outpatient (REF) | payer OTHER, SELFPAY | LOC: DHVS 09:47 | PROVIDERS: ATTENDING PHYSICIAN Surgery Vascular Surgery; FAMILY PHYSICIAN Family Medicine | DX: I65.22 Occlusion and stenosis of left carotid artery (principal) | CPT/HCPCS: 93880 ==